=== PATIENT | female | born 1935 | race Caucasian/White ===

== ENCOUNTER 2016-06-09 16:59 | Inpatient (IN) ==
--- NOTE | 2016-06-09 17:32 | ED.PDOC ---
General Stated Complaint: 81 yo alert oriented humorous wf with history of left sided weakness post CVA slid out of bed into floor 4-5 hours finally up to living room. back to the bedroom legs gave out,red left hip. multiple bruises,coccyx red scabbed,knees red abraded "hurts all over" weak problems with falling. fell monday [employer] hit head denies loc[ End ]97.2 94 16 100 171/64 04/29 Time Seen by Physician: 17:32 Mode of Arrival: Ambulance Information Source: Patient Exam Limitations: No limitations Nursing and Triage Documentation Reviewed and Agree: No <JUAN JOSE GARCIA JR - Last Filed: 06/09/16 19:14> <VIRAJ VARGAS - Last Filed: 06/09/16 19:43> ED Provider: Dr. VIRAJ VARGAS (JUAN JOSE GARCIA JR) (VIRAJ VARGAS) Chief Complaint: Fall Primary Care Provider: DANGELO GONSALEZ (JUAN JOSE GARCIA JR) (VIRAJ VARGAS) Review of Systems - Review Of Systems Constitutional: Reports: Malaise, Weakness Eyes: Reports: No symptoms Ears, Nose, Mouth, Throat: Reports: No symptoms Respiratory: Reports: No symptoms Cardiac: Reports: No symptoms GI: Reports: No symptoms, Poor appetite : Reports: No symptoms Musculoskeletal: Reports: Other (left sided weakness) Skin: Reports: Bruising, Lesions Neurological: Reports: Weakness. Denies: Headache Endocrine: Reports: No symptoms Hematologic/Lymphatic: Reports: No symptoms All Other Systems: Other <JUAN JOSE GARCIA JR - Last Filed: 06/09/16 19:14> Past Medical History - Past Medical History Endocrine: Reports: DM 2, Hypothyroid Cardiovascular: Reports: None Respiratory: Reports: None Hematological: Reports: None Gastrointestinal: Reports: None Genitourinary: Reports: None Neuro/Psych: Reports: CVA Musculoskeletal: Reports: None Cancer: Reports: None Last Menstrual Period: n/a - Surgical History General Surgical History: Reports: Hysterectomy, Pacemaker, Orthopedic (left hip ), Other (thyroid) - Family History Family History: Reports: Unknown - Social History Smoking Status: Never smoker Hx Substance Use: No Alcohol Screening: None <JUAN JOSE GARCIA JR - Last Filed: 06/09/16 19:14> Physical Exam - Physical Exam Appearance: Ill-appearing Ill-appearing: Moderate Pain Distress: Moderate Neck: Supple Respiratory: Airway patent, Breath sounds clear Cardiovascular: RRR, Pulses normal, No rub GI/: Soft, Nontender Musculoskeletal: No calf tenderness, Limited ROM Skin: Warm, Dry, Normal color Neurological: Sensation intact, Motor intact, Reflexes intact, Cranial nerves intact, Alert, Oriented <JUAN JOSE GARCIA JR - Last Filed: 06/09/16 19:14> Interpretation - Radiology Interpretation Radiology Interpretation By: ED Physician Radiology Results: No acute changes Exam Interpreted: CXR - EKG Interpretation Time of EKG #1: 17:45 Rhythm: Other (paced at 82) <JUAN JOSE GARCIA JR - Last Filed: 06/09/16 19:14> Physician Notification - Case Discussed Endorsed To/Discussed With: DR IBARRA Time of Discussion: 19:15 <JUAN JOSE GARCIA JR - Last Filed: 06/09/16 19:14> - Case Discussed Physician Notified: dr gonsalez Time of Notification: 19:43 <VIRAJ VARGAS - Last Filed: 06/09/16 19:43> Critical Care Note - Critical Care Note Total Time (mins): 15 <JUAN JOSE GARCIA JR - Last Filed: 06/09/16 19:14> Course - Course Hematology/Chemistry: 06/09/16 18:20 <JUAN JOSE GARCIA JR - Last Filed: 06/09/16 19:14> - Course Hematology/Chemistry: 06/09/16 18:20 06/09/16 18:20 <VIRAJ VARGAS - Last Filed: 06/09/16 19:43> - Course Orders, Labs, Meds: Lab Review 06/09/16 06/09/16 06/09/16 17:44 17:54 18:20 WBC 8.86 RBC 4.40 Hgb 13.9 Hct 40.2 MCV 91.4 MCH 31.6 H MCHC 34.6 RDW Coeff of Hollie 14.6 Plt Count 152 Immature Gran % (Auto) 0.3 Neut % (Auto) 84.6 Lymph % (Auto) 7.8 L Mcdonough % (Auto) 7.0 Eos % (Auto) 0.1 Baso % (Auto) 0.2 Immature Gran # (Auto) 0.0 Neut # 7.5 H Lymph # 0.7 Mcdonough # 0.6 Eos # 0.0 Baso # 0.0 Sodium 140 Potassium 4.2 Chloride 98 Carbon Dioxide 25 Anion Gap 21.2 BUN 41 H Creatinine 1.56 H Estimated GFR (MDRD) 32.00 BUN/Creatinine Ratio 26.28 Glucose 159 H Lactic Acid 17.1 Calcium 9.1 Total Bilirubin 2.71 H AST 105 H ALT 77 Alkaline Phosphatase 91 Total Creatine Kinase 2868 CK-MB (CK-2) 52.5 H* CK-MB (CK-2) % 1.44903 Troponin I 0.0640 Total Protein 6.8 Albumin 3.9 Globulin 2.9 Albumin/Globulin Ratio 1.34 Urine Color Dark Urine Clarity Cloudy Urine pH 5.0 Ur Specific Richardson >=1.030 Urine Protein 2+ Urine Glucose (UA) Negative Urine Ketones Trace Urine Blood 3+ Urine Nitrite Negative Urine Bilirubin 2+ Urine Urobilinogen 0.2 Ur Leukocyte Esterase Negative Urine Microscopic RBC 10-20 Urine Microscopic WBC 2-5 Ur Squamous Epith Cells 5-10 Orders Category Date Time Status EKG-(ED ONLY) Stat CARDIO 06/09/16 17:33 Completed ED IV/MEDIPORT/POWERPORT .ONCE EMERGENCY 06/09/16 17:33 Active B-TYPE NATRIURETIC PEPTIDE Stat LAB 06/09/16 17:33 Ordered BLOOD CULTURE Stat LAB 06/09/16 18:06 Received CBC W/ AUTO DIFF Stat LAB 06/09/16 18:20 Completed COMPREHENSIVE METABOLIC PANEL Stat LAB 06/09/16 18:20 Completed CREATINE KINASE Stat LAB 06/09/16 18:20 Completed D-DIMER Stat LAB 06/09/16 18:20 Completed LACTIC ACID Stat LAB 06/09/16 17:54 Completed PROCALCITONIN Stat LAB 06/09/16 Ordered TROPONIN I Stat LAB 06/09/16 18:20 Completed UA [URINALYSIS C & S IF INDICATED] Stat LAB 06/09/16 17:44 Completed 0.9 % Sodium Chloride [Saline Flush] MEDS 06/09/16 17:33 Ordered 1 syr IVF PRN PRN Sodium Chloride 0.9% [Sodium Chloride] 1,000 ml MEDS 06/09/16 18:00 Discontinued IV BOLUS CHEST, 1V AP ONLY Stat RADS 06/09/16 17:[address] HEAD W/O CONTRAST Stat RADS 06/09/16 18:[address] PELVIS W/O CONTRAST Stat RADS 06/09/16 18:50 Completed Medications Generic Name Dose Route Start Last Admin Trade Name Freq PRN Reason Stop Dose Admin Sodium Chloride 1 syr 06/09/16 17:33 Saline Flush IVF PRN PRN To flush IV Discontinued Medications Generic Name Dose Route Start Last Admin Trade Name Freq PRN Reason Stop Dose Admin Sodium Chloride 1,000 mls @ 1,000 mls/hr 06/09/16 18:00 06/09/16 18:22 Sodium Chloride IV 06/09/16 18:59 200 mls/hr BOLUS STA Administration (FRED-ER,VIRAJ) Vital Signs: Temp Pulse Resp BP Pulse Ox 06/09/16 17:12 97.2 F L 94 H 16 171/64 H 100 (JUAN JOSE GARCIA JR) (FRED-PENNY,VIRAJ) Departure <JUAN JOSE GARCIA JR - Last Filed: 06/09/16 19:14> - Departure Time of Disposition: 19:43 Pt referred to PMD for follow-up: Yes Disposition Discussed With: Patient <VIRAJ VARGAS - Last Filed: 06/09/16 19:43> - Departure Disposition: ADMITTED INPATIENT Discharge Problem: Falls, Dehydration symptoms Condition: Fair Allergies/Adverse Reactions: Allergies codeine Adverse Reaction (Verified 06/09/16 17:19) insulin aspart Adverse Reaction (Verified 06/09/16 17:19) Home Medications: Ambulatory Orders Alprazolam [Xanax] 0.25 mg PO TID 12/02/13 Aspirin [Aspirin EC] 81 mg PO DAILYWM 12/02/13 Levothyroxine Sodium [Synthroid] 100 mcg PO AC 12/02/13 Simvastatin [Zocor] 40 mg PO WMHS 12/02/13 Tolterodine Tartrate [Detrol LA] 4 mg PO DAILY 12/02/13 Aspirin 81 mg PO DAILY 06/09/16 Cholecalciferol (Vitamin D3) [Vitamin D3] 2,000 unit PO DAILY 06/09/16 Dicyclomine HCl [Bentyl] 10 mg PO BID 06/09/16 Diphenoxylate HCl/Atropine [Lomotil 2.5-0.025 mg Tablet] 1 each PO DAILY PRN Losartan/Hydrochlorothiazide [Losartan-Hctz 100-12.5 mg Tab] 1 each PO DAILY Nitroglycerin [Nitrostat] 0.4 mg SL Q5MIN X 3 DOSES PRN 06/09/16
[2016-06-09 17:44] LABS: BILIRUBIN,URINE 2+ (NEGATIVE); KETONES,URINE Trace (NEGATIVE); LEUKOCYTE ESTERASE ,URINE Negative (NEGATIVE); NITRITE,URINE Negative (NEGATIVE); PROTEIN,URINE 2+ (NEGATIVE); URINE, BLOOD 3+ (NEGATIVE)
[2016-06-09 17:46] LABS: ADD URINE MICROSCOPIC YES
[2016-06-09] MEDS ORDERED: SODIUM CHLORIDE 1,000 ML IV STA (18:00)
[2016-06-09 18:30] LABS: BASOPHILS % (AUTO) 0.2 % (0.0-3.0); EOSINOPHILS % (AUTO) 0.1 % (0.0-7.0); HEMATOCRIT 40.2 % (37.0-47.0); HEMOGLOBIN 13.9 g/dl (12.0-16.0); IMMATURE GRANULOCYTE % (AUTO) 0.3 % (0.0-5.0); LYMPHOCYTES # (AUTO) 0.7 K/uL (0.60-3.4); LYMPHOCYTES % (AUTO) 7.8 (10.0-50.0); MEAN CORPUSCULAR HEMOGLOBIN 31.6 pg (27.0-31.0); MEAN CORPUSCULAR HGB CONC 34.6 (31.8-35.4); MEAN CORPUSCULAR VOLUME 91.4 fl (81.0-99.0); MONOCYTES # (AUTO) 0.6 K/uL (0.4-2.0); NEUTROPHILS # (AUTO) 7.5 K/ul (2.0-6.9); NEUTROPHILS % (AUTO) 84.6; PLATELET COUNT 152 10^3/uL (140-440); WHITE BLOOD COUNT 8.86 K/ul (4.6-10.2)
--- NOTE | 2016-06-09 19:06 | CT ---
EXAM: CT head without contrast 05/12/2016. Sagittal and coronal reformatted images obtained HISTORY: Fall. Trauma COMPARISON: None. FINDINGS: There is no evidence of intracranial hemorrhage. The midline is maintained. There is no hydrocephalus. Generalized atrophy. There is extensive low attenuation throughout the periventricu lar and subcortical white matter likely due to chronic microvascular ischemic changes. No cerebella r tonsillar ectopia. Evaluation of the calvarium shows no fracture. The mastoid air cells are norm ally pneumatized. IMPRESSION: No acute intracranial abnormality. Chronic findings as above.
[2016-06-09 19:20] LABS: ALBUMIN 3.9 g/dL (3.4-5.0); ALBUMIN/GLOBULIN RATIO 1.34; ANION GAP 21.2; BILIRUBIN,TOTAL 2.71 mg/dL (0.00-1.20); BUN/CREATININE RATIO 26.28; CALCIUM 9.1 mg/dL (8.2-10.2); CREATININE 1.56 mg/dL (0.60-1.30); POTASSIUM 4.2 mmol/L (3.5-5.10); TOTAL PROTEIN 6.8 g/dL (5.8-8.1); TROPONIN I 0.064 ng/ml (0.0000-0.4000)
--- NOTE | 2016-06-09 19:27 | CT ---
EXAM: CT of the pelvis without contrast. HISTORY: Fall. COMPARISON: CT of the pelvis dated 06/06/2014 TECHNIQUE: Contiguous axial images were obtained through the bony pelvis. Sagittal and coronal ref ormats were reviewed. FINDINGS: There are postoperative changes with 3 feet can the screws in the left hip and a femoral nail on the right. The hardware is intact. There is questionable lucency around the cannulated scr ews on the left. Findings suggest loosening. No acute fractures are identified. No other fractures are identified. There are no lytic or blastic lesions. Mild osteopenia seen. There are no sacral fractures identified on the study. There are degenerative changes of the lower lumbar spine. IMPRESSION: 1. No acute fractures are identified. 2. Postoperative changes in the hips bilaterally. There is some lucency around the cannulated scre ws on the left which may be due to loosening. 3. Mild osteopenia. 4. Degenerative changes. 5. Atherosclerotic disease.
[2016-06-09 19:32] LABS: CREATINE KINASE MB 52.5 ng/ml (0.0-3.6)
[2016-06-09] MEDS ORDERED: NITROSTAT SL PRN (19:46)
[2016-06-09] MEDS ORDERED: LOMOTIL PO PRN (19:46)
[2016-06-09 20:51] VITALS: BMI 21.4
[2016-06-09] MEDS ORDERED: ZOCOR PO SCH (21:00)
[2016-06-09] MEDS: SODIUM CHLORIDE 1,000 ML IV SCH (21:02)
[2016-06-09] MEDS ORDERED: ZOCOR ONE (21:11)
[2016-06-09] MEDS: XANAX PO SCH (21:13)
[2016-06-09] MEDS: BENTYL PO SCH (21:13)
--- NOTE | 2016-06-10 00:35 | DI ---
EXAM: AP single view of the chest. HISTORY: Chest pain. FINDINGS: The bones are unremarkable. There is a two lead pacemaker. The cardiac silhouette and pu lmonary vasculature are within normal limits. The costophrenic angles are clear. No infiltrate or c onsolidation. Impression: No acute cardiopulmonary disease.
[2016-06-10] MEDS: SODIUM CHLORIDE 1,000 ML IV SCH ×2 (05:19→15:22)
[2016-06-10] MEDS ORDERED: SYNTHROID ONE (05:25)
[2016-06-10 06:10] LABS: BASOPHILS % (AUTO) 0.4 % (0.0-3.0); EOSINOPHILS # (AUTO) 0.1 K/ul (0.0-0.7); EOSINOPHILS % (AUTO) 0.9 % (0.0-7.0); HEMATOCRIT 34.1 % (37.0-47.0); HEMOGLOBIN 11.6 g/dl (12.0-16.0); IMMATURE GRANULOCYTE % (AUTO) 0.3 % (0.0-5.0); LYMPHOCYTES # (AUTO) 1.1 K/uL (0.60-3.4); LYMPHOCYTES % (AUTO) 15.4 (10.0-50.0); MEAN CORPUSCULAR HEMOGLOBIN 31.1 pg (27.0-31.0); MEAN CORPUSCULAR VOLUME 91.4 fl (81.0-99.0); MONOCYTES # (AUTO) 0.5 K/uL (0.4-2.0); MONOCYTES % (AUTO) 6.6 (0-10); NEUTROPHILS # (AUTO) 5.3 K/ul (2.0-6.9); NEUTROPHILS % (AUTO) 76.4; PLATELET COUNT 153 10^3/uL (140-440); RED BLOOD COUNT 3.73 10^6/ul (4.20-5.40); WHITE BLOOD COUNT 6.93 K/ul (4.6-10.2)
[2016-06-10] MEDS ORDERED: SYNTHROID PO SCH ×2 (06:30→09:00)
[2016-06-10 06:45] LABS: ALBUMIN 3.2 g/dL (3.4-5.0); ALBUMIN/GLOBULIN RATIO 1.45; ANION GAP 14.2; BILIRUBIN,TOTAL 2.15 mg/dL (0.00-1.20); BUN/CREATININE RATIO 37.75; CALCIUM 8.2 mg/dL (8.2-10.2); CREATININE 0.98 mg/dL (0.60-1.30); POTASSIUM 3.2 mmol/L (3.5-5.10); TOTAL PROTEIN 5.4 g/dL (5.8-8.1)
[2016-06-10] MEDS ORDERED: ASPIRIN CHEWABLE PO SCH (08:00)
[2016-06-10] MEDS ORDERED: K-DUR PO STA (08:34)
[2016-06-10] MEDS ORDERED: NON-FORMULARY MEDICATION (Losartan/Hydrochlorothiazide [Losartan-Hctz 100-12.5 Mg Tab] 1 E PO SCH (09:00)
[2016-06-10] MEDS ORDERED: NON-FORMULARY MEDICATION (Tolterodine Tartrate 4 MG) PO SCH (09:00)
[2016-06-10] MEDS ORDERED: VITAMIN D PO SCH (09:00)
[2016-06-10] MEDS ORDERED: COZAAR PO SCH (09:00)
[2016-06-10] MEDS ORDERED: NON-FORMULARY MEDICATION (Cholecalciferol (Vitamin D3) [Vitamin D3] 2,000 UNIT) PO SCH (09:00)
[2016-06-10] MEDS ORDERED: HYDROCHLOROTHIAZIDE PO SCH (09:00)
[2016-06-10] MEDS ORDERED: DETROL LA PO SCH (09:00)
[2016-06-10] MEDS ORDERED: LOVENOX SUBCUT SCH (09:00)
[2016-06-10 09:31] LABS: CREATINE KINASE MB 17.6 ng/ml (0.0-3.6)
--- NOTE | 2016-06-10 09:31 | PN ---
DATE OF SERVICE: 06/09/16 - ADMISSION NOTE SUBJECTIVE: 81-year-old white female was brought to the emergency room because she has been falling frequently. The patient denies any chest pain. No PND, no orthopnea. The patient is weak. At times, the patient is not able to cook for herself and goes hungry according to her. REVIEW OF SYSTEMS: CONSTITUTIONAL: Weakness. No night sweats. No fever or chills. HEENT: Eyes: No visual changes. No eye pain. No eye discharge. ENT: No runny nose. No epistaxis. No sinus pain. No sore throat. No odynophagia. No congestion. RESPIRATORY: No cough, no congestion. No hemoptysis. CARDIOVASCULAR: No angina symptoms. No CHF symptoms. No atypical chest pain for CAD. No palpitations. No shortness of breath. GASTROINTESTINAL: No abdominal pain. No nausea or vomiting. No diarrhea or constipation. No hematemesis. No hematochezia. GENITOURINARY: No urgency. No frequency. No dysuria. No hematuria. No obstructive symptoms. No discharge. No pain. No significant abnormal bleeding. MUSCULOSKELETAL: No musculoskeletal pain; no joint swelling. NEUROLOGICAL: No headache. No neck pain. No syncope. No seizures. No dizziness. PSYCHIATRIC: Not anxious. No depression. No suicidal thoughts. No homicidal thoughts. SKIN: No rash. No lesions. No wounds. ENDOCRINE: No unexplained weight loss. No weight gain. HEMATOLOGIC/LYMPHATIC: No anemia. No purpura. No petechiae. No prolonged or excessive bleeding. No palpable lymph nodes. PHYSICAL EXAMINATION: VITAL SIGNS: HEENT: Head normocephalic, atraumatic. Eyes: Extraocular muscles are intact. Pupils are equal, round and reactive to light and accommodation. Ears: No lesions. Nose appeared normal. Throat: No exudate or erythema. Mucous membranes dry. NECK: Supple. No JVD, no carotid bruit. No lymphadenopathy or thyromegaly. LUNGS: Clear to auscultation. Percussion note normal. Chest symmetrical. HEART: S1, S2, no S3. No murmurs. No cyanosis or clubbing. No ascites. Pulses: Dorsalis pedis and posterior tibial pulses +1 to +2 both sides. ABDOMEN: Soft. Nontender. Bowel sounds active. No CVA tenderness. No mass felt. EXTREMITIES: No edema. Full range of motion of all extremities, equal. NEUROLOGIC: Left-sided weakness as before - no new neurological deficits. No headache, no double vision or headache. SKIN: Dry. Intact. Turgor - normal. LYMPHATIC: No palpable lymph nodes/no lymphedema. MUSCULOSKELETAL: Normal joints with no swelling. Muscle tone is normal. LABS: Elevated creatinine and BUN. Urine shows some trace blood. CK is approximately 2000 with borderline MB from muscle fraction. Because of the falls, the patient' s CK is up. Practically all the x-rays, CT scan are negative. ASSESSMENT: 1. Frequent falls 2. Dehydration 3. Renal azotemia 4. Status post CVA with left hemiparesis, old PLAN: 1. Admit the patient for IV fluids 2. Telemetry 3. Serial EKGs 4. Cardiac markers 5. Monitor neuro checks CONDITION: Stable TIME SPENT: More than 30 minutes. Plan and coordination of the patient's care discussed in the presence of nurse. JOSUE
[2016-06-10] MEDS: XANAX PO SCH (09:45)
[2016-06-10] MEDS: BENTYL PO SCH (09:46)
[2016-06-10 10:26] VITALS: TEMP 97.4
--- NOTE | 2016-06-10 10:35 | CT ---
EXAM: CT of the abdomen pelvis without contrast History: Elevated bilirubin, status post cholecystectomy. Comparison: CT abdomen pelvis 06/06/2014, pelvic CT 06/09/2016 Technique: Multiplanar CT images through the abdomen pelvis were obtained without the administratio n of IV contrast Findings: Subsegmental atelectasis again seen within the left lung base. There is a mildly displac ed fracture of the left greater trochanter. Hardware again seen within the bilateral proximal femurs . 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 Status post cholecystectomy. No obvious biliary ductal dilatation but evaluation is limited due to lack of contrast administration. Atherosclerotic vascular calcifications. Adrenal glands are unrem arkable. There is some atrophy of the pancreas but no peripancreatic inflammation. Adrenal glands a re unremarkable. Fluid is seen within the right: There is no specific evidence for bowel obstructi on. No renal stones and no hydronephrosis. Air is seen within the bladder and possibly within the b ladder wall. No perirectal inflammation. Impression: 1. Findings suspicious for emphysematous cystitis. 2. Status post cholecystectomy. No obvious biliary ductal dilatation. 3. Mildly displaced fracture of the left greater trochanter.
--- NOTE | 2016-06-10 11:55 | HP ---
DATE OF SERVICE: 06/09/16 - SEEN BY DR. DE JESUS FOR DR. LI CHIEF COMPLAINT/HISTORY OF PRESENT ILLNESS: This 81 year old WHITE/ F was hospitalized 06/09/16. The patient states she went to [facility] in Monday and fell. She came home and the next day or so became sore. She used bedside commode then went to living room and went to sleep. She then got up to go to the computer, sat down and started to get up from the bed and grabbed the commode and slid off the bed. She denies hitting her head or any loss of consciousness. She presented to the emergency room via ambulance. The patient's CPK and MB were elevated. The patient has a pacemaker placed the first of the year at [facility]. She was evaluated and admitted for further evaluation. REVIEW OF SYSTEMS: CONSTITUTIONAL: No fever, no chills. HEENT: Normal. ENDOCRINE: No weight gain; no weight loss. CVS: No chest pain. No PND, no orthopnea. No shortness of breath. RESPIRATORY: No cough, no congestion. No hemoptysis. GI: No nausea, no vomiting. No abdominal pain. No melena. : No hematuria. No polyuria. MUSCULOSKELETAL: No complaints of pain this morning. PSYCHIATRIC: Not anxious. No depression. No suicidal thoughts. No homicidal thoughts. SKIN: Intact, no open lesions. 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 No ilicit drug use. MEDICATIONS: (HOME) Alprazolam (Xanax) 0.25 mg p.o. t.i.d. Aspirin 81 mg p.o. daily with meal Levothyroxine (Synthroid) 100 mcg p.o. a.c. Simvastatin (Zocor) 40 mg p.o. with meal at h.s. Tolterodine (Detrol LA) 4 mg p.o. daily Nitroglycerin 0.4 mg SL q.5 min times three doses p.r.n. Aspirin 81 mg p.o. daily Losartan/HCTZ one each p.o. daily Dicyclomine (Bentyl) 10 mg p.o. b.i.d. Diphenoxylate/Atropine one each p.o. daily p.r.n. Cholecalciferol 2000 unit p.o. daily ALLERGIES: CODEINE, INSULIN ASPART PHYSICAL EXAMINATION: VITAL SIGNS: Temperature 97.3 F, Pulse 67, Respiratory Rate 17, BP 172/69, Pulse Ox 95% GENERAL: Sitting in chair in no distress. HEENT: Atraumatic, normocephalic. No scleral icterus. No pallor. NECK: Supple. No JVD, no bruit. No lymphadenopathy. No thyromegaly. HEART: S1, S2 normal. No murmur. No cyanosis or clubbing. No ascites. LUNGS: Decreased air entry. Clear to auscultation. No rales or rhonchi. ABDOMEN: Soft, nontender. Bowel sounds are active. No CVA tenderness. No rigidity or guarding. EXTREMITIES: No cyanosis, clubbing or pedal edema. MUSCULOSKELETAL: Normal joints, no swelling. NEUROLOGIC: The patient is awake, alert, oriented times three. SKIN: Intact; no open lesions. LYMPHATIC: No lymph nodes palpable. LAB REVIEW: 06/10/16 05:05: WBC 6.93, RBC 3.73 L, Hgb 11.6 L, Hct 34.1 L D, MCV 91.4, MCH 31.1 H, MCHC 34.0, RDW Coeff of Hollie 14.9 H, Plt Count 153, Immature Gran % (Auto ) 0.3, Neut % (Auto) 76.4, Lymph % (Auto) 15.4, Ida % (Auto) 6.6, Eos % (Auto) 0.9, Baso % (Auto) 0.4, Immature Gran # (Auto) 0.0, Neut # 5.3, Lymph # 1.1, Ida # 0.5, Eos # 0.1, Baso # 0.0, Sodium 139, Potassium 3.2 L, Chloride 103, Carbon Dioxide 25, Anion Gap 14.2, BUN 37 H, Creatinine 0.98 D, Estimated GFR ( MDRD) 55.00, BUN/Creatinine Ratio 37.75, Glucose 113, Calcium 8.2, Total Bilirubin 2.15 H, AST 75 H D, ALT 56, Alkaline Phosphatase 73, Total Protein 5.4 L, Albumin 3.2 L, Globulin 2.2, Albumin/Globulin Ratio 1.45 ASSESSMENT: 1. STATUS POST FALL 2. ELEVATED BILIRUBIN WITH ELEVATED LIVER ENZYMES MOSTLY FROM ELEVATED CPK BUT WILL RULE OUT INTRAABDOMINAL PATHOLOGY 3. EARLY RHABDOMYOLYSIS 4. DEHYDRATION 5. HYPOKALEMIA 6. ANEMIA 7. HYPERTENSION 8. DYSLIPIDEMIA 9. PERMANENT PACEMAKER PLAN: 1. Admit to regular floor 2. CBC, CMP today and daily 3. IV fluids 75 ml/daily 4. Stop Losartan/Hydrochlorothiazide 5. Start the patient on plain Losartan 100 mg 6. Daily I & O 7. Discontinue Zocor 8. CT abdomen and pelvis without contrast 9. TSH 10. PT/OT consult 11. Urine myoglobin 12. Potassium 40 mEq Plan and coordination of the patient's care discussed in the presence of Enroute Controller and nurse. CONDITION: Stable SCRIBED BY: ADA GARCES, Human Relations Professor scribed while in presence of service performed by Dr. De Jesus on 06/10/16 ([id number]) [facility]
[2016-06-10 13:58] VITALS: BP 142/74
[2016-06-10 14:17] LABS: CREATINE KINASE MB 12.1 ng/ml (0.0-3.6)
[2016-06-10] MEDS ORDERED: ZOCOR PO SCH (21:00)
[2016-06-11] MEDS ORDERED: SYNTHROID PO SCH ×2 (06:30)
--- NOTE | 2016-06-23 09:45 | DS ---
DATE OF SERVICE: 06/10/16 FINAL DIAGNOSIS: 1. Status post fall 2. Loosening of the hip nailing 3. Greater trochanter fracture 4. Acute renal failure with early rhabdomyolysis 5. Anemia 6. Elevated CK-MB 7. History of Coronary artery disease 8. Permanent pacemaker which was changed in March 2016 at [facility] 9. CVA, 2007 with the left hemiparesis residual 10.Hysterectomy 11.Osteoarthritis 12.DJD spine 13.Left hip pinning and nailing 14.Hypothyroidism 15.Depression 16.Anxiety DISCHARGE INSTRUCTIONS: Discharge patient to the [facility] under the care of the hospitalist for the greater trochanter fracture. Continue the current medications. MEDICATIONS AT DISCHARGE: Xanax Aspirin EC Synthroid Zocor Detrol Nitrostat Aspirin Losartan Bentyl Lomotil Vitamin D3 NEW PRESCRIPTIONS: N/A DIET INSTRUCTIONS: NPO ACTIVITY: Bed rest. SMOKING: Non-smoker DISEASE SPECIFIC EDUCATION: Transfer Greater Trochanter fracture HOSPITAL COURSE: Brenda Flores who is an 81 year old female who was admitted under the care of Dr. Miles yesterday for acute rhabdomyolysis, acute renal failure, dehydration and status post fall with left hip pain. CT of the abdomen and pelvis does show that patient's previously done nailing was loosening and there was a cannulate formation. CT pelvis was done today which again showed the greater trochanter fracture and the same loosening of the pins in the left hip. Her BUN and creatinine got improved from 41 to 37 and creatinine 1.56 and 0.98. Total creatinine kinase went down to 1,107 from 2868. The patient was more awake and alert but review of her left hip problems the patient is transferred to the [facility] under the care of hospitalist. TIME SPENT: More than 45 minutes today. JOSUE
== END 2016-06-10 14:25 | disposition short-term general hospital (02) | DRG 536 ==
LOC: ED 16:59 → MEDSURG B 19:51
PROVIDERS: ADMIT Internal Medicine; ATTEND Internal Medicine
DX: S72.112A Displaced fracture of greater trochanter of left femur, initial encounter for closed fracture (principal); T84.031A Mechanical loosening of internal left hip prosthetic joint, initial encounter; M62.82 Rhabdomyolysis; N17.9 Acute kidney failure, unspecified; I69.954 Hemiplegia and hemiparesis following unspecified cerebrovascular disease affecting left non-dominant side; E86.0 Dehydration; R79.89 Other specified abnormal findings of blood chemistry; E11.9 Type 2 diabetes mellitus without complications; D64.9 Anemia, unspecified; M62.81 Muscle weakness (generalized); I25.10 Atherosclerotic heart disease of native coronary artery without angina pectoris; M19.90 Unspecified osteoarthritis, unspecified site; M47.9 Spondylosis, unspecified; E03.9 Hypothyroidism, unspecified; F41.8 Other specified anxiety disorders; T14.8 Other injury of unspecified body region; W06.XXXA Fall from bed, initial encounter; Z91.81 History of falling; Y92.003 Bedroom of unspecified non-institutional (private) residence as the place of occurrence of the external cause; Z79.899 Other long term (current) drug therapy; Z95.0 Presence of cardiac pacemaker
CPT/HCPCS: 36415; 80053; 81001; 82550; 82553; 83605; 83880; 84145; 84443; 84484; 85025; 85379; 87040; 93005; 93010; 96360; 96361; 99284

== ENCOUNTER 2017-10-09 08:12 | Outpatient (CLI) ==
--- NOTE | 2017-10-09 09:02 | US ---
EXAM: Ultrasound abdomen limited right upper quadrant HISTORY: Abnormal liver enzymes COMPARISON: None TECHNIQUE: Limited ultrasound abdomen right upper quadrant was performed FINDINGS: Visualized portion pancreas appears normal. Portions of the pancreas obscured secondary t o bowel gas shadowing. Liver normal in size and echogenicity. Main portal vein patent with directio n of flow. Patient status post cholecystectomy. No biliary duct dilation with common bile pressure 0.4 cm. Right kidney measures 8.9 cm in length without hydronephrosis. IMPRESSION: 1. Status post cholecystectomy. No biliary duct dilation. 2. Normal sonographic appearance of the liver.
== END 2017-10-09 08:13 | disposition home or self-care (01) ==
LOC: RAD 08:12
PROVIDERS: ATTEND Internal Medicine
DX: R74.8 Abnormal levels of other serum enzymes (principal)

== ENCOUNTER 2018-03-23 14:21 | Inpatient (IN) | payer OTHER ==
--- NOTE | 2018-03-23 15:20 | CT ---
EXAM: CT Head HISTORY: Injury COMPARISON: 06/09/2016 TECHNIQUE: CT head performed without contrast FINDINGS: There is no mass effect, midline shift, or intracranial hemmorhage. Tena white differenti ation is preserved. There is no extra-axial collection. The ventricles, sulci, and basal cisterns a re patent and symmetric. There is chronic ischemic disease of the white matter and cerebral volume l oss. There is no depressed calvarial fracture. The mastoid air cells are clear. The visualized para nasal sinuses are clear. There are intracranial atherosclerotic calcifications. Left frontal scalp h ematoma. IMPRESSION: 1. No acute intracranial abnormality. 2. Left frontal scalp hematoma. 3. Chronic ischemic disease of the white matter and cerebral volume loss.
--- NOTE | 2018-03-23 15:21 | CT ---
EXAM: CT cervical spine. HISTORY: Neck injury, pain. TECHNIQUE: CT cervical spine without contrast. Detailed axial sections. Coronal and sagittal re-fo rmations. COMPARISON: None FINDINGS: Bones appear demineralized. There is no fracture or loss of vertebral body height. No spondylolisth esis. Facet joints are covered. Lateral masses of C1 and C2 are normally aligned and the odontoid process is intact. Diffuse degenerative disc and facet disease with multilevel mild central canal st enosis. Probable degenerative neural foraminal narrowing at C5/C6 on the right. No paraspinal hemat trevon. Incidental note of atherosclerotic disease. IMPRESSION: 1. No fracture or subluxation.
--- NOTE | 2018-03-23 15:25 | ED.PDOC ---
General ED Provider: Dr. NORA LIN Chief Complaint: Fall Stated Complaint: head injury Time Seen by Physician: 14:30 (see photos) Mode of Arrival: Ambulance Information Source: Patient, EMT Exam Limitations: No limitations Primary Care Provider: DANGELO LI Nursing and Triage Documentation Reviewed and Agree: Yes Does patient meet sepsis criteria?: No System Inflammatory Response Syndrome: Not Applicable Sepsis Protocol: For patient's 13 years and over: Temp is 96.8 and below OR 101 and greater Pulse >90 BPM Resp >20/minute Acutely Altered Mental Status Are patient's symptoms suggestive of a new infection, such as: -Pneumonia -Skin, Soft Tissue -Endocarditis -UTI -Bone, Joint Infection -Implantable Device -Acute Abdominal Infection -Wound Infection -Meningitis -Blood Stream Catheter Infection -Unknown Trauma/Injury Complaint Exam - Trauma Complaint/Exam Location of Pain or Injury: Reports: Head, Neck, Other (arm skin tear ) Onset/Duration: today Symptoms Are: Still present Initial Severity: Mild Current Severity: Mild Character: Reports: Aching Aggravating: Reports: None Alleviating: Reports: Rest Associated Signs and Symptoms: Reports: Bruising (forhead). Denies: LOC, Confusion, Memory loss, Lethargy, Vomiting, Bleeding, Swelling, Extremity disuse , Painful respiration, Hoarseness, Dysphagia, Hemoptysis, Significant blood loss Nexus Low Risk Criteria: No post-midline CS tender, No evidence of intoxicat., No Altered LOC, No focal neuro deficit, No distracting injuries Glascow Coma Scale (see protocol): 15 Review of Systems - Review Of Systems Constitutional: Reports: No symptoms Eyes: Reports: No symptoms Ears, Nose, Mouth, Throat: Reports: No symptoms Respiratory: Reports: No symptoms Cardiac: Reports: No symptoms GI: Reports: No symptoms : Reports: No symptoms Musculoskeletal: Reports: No symptoms Skin: Reports: Bruising (head ), Other (abrasion arms see photos) Neurological: Reports: No symptoms Endocrine: Reports: No symptoms Hematologic/Lymphatic: Reports: No symptoms All Other Systems: Reviewed and Negative Past Medical History - Past Medical History Previously Healthy: Yes Endocrine: Reports: DM 2, Hypothyroid Cardiovascular: Reports: None Respiratory: Reports: None Hematological: Reports: None Gastrointestinal: Reports: None Genitourinary: Reports: None Neuro/Psych: Reports: CVA Musculoskeletal: Reports: None Cancer: Reports: None Last Menstrual Period: NA - Surgical History General Surgical History: Reports: Hysterectomy, Pacemaker, Orthopedic (left hip ), Other (thyroid) - Family History Family History: Reports: Unknown - Social History Smoking Status: Never smoker Hx Substance Use: No Alcohol Screening: None Physical Exam - Physical Exam Appearance: Well-appearing, No pain distress, Well-nourished Eyes: CHANTAL, EOMI, Conjunctiva clear ENT: Ears normal, Nose normal, Oropharynx normal Respiratory: Airway patent, Breath sounds clear, Breath sounds equal, Respirations nonlabored Cardiovascular: RRR, Pulses normal, No rub, No murmur GI/: Soft, Nontender, No masses, Bowel sounds normal, No Organomegaly Musculoskeletal: Normal strength, ROM intact, No edema, No calf tenderness Skin: Warm, Dry (abrasion left arm, brusing forhead ) Neurological: Sensation intact, Motor intact, Reflexes intact, Cranial nerves intact, Alert, Oriented Psychiatric: Affect appropriate, Mood appropriate Interpretation - Radiology Interpretation Radiology Interpretation By: Radiologist Radiology Results: No acute changes Procedures - Laceration/Wound Repair No standard instances Wound Description: Linear Wound Length (cm): 1cm Wound Width: 2mm Wound Depth: 2mm Wound Explored: Clean Wound Prep: Saline, Hibiclens Wound Repaired With: Steri-strips Critical Care Note - Critical Care Note Total Time (mins): 0 Course - Course Orders, Labs, Meds: Lab Review 03/23/18 14:51 Urine Color Yellow Urine Clarity Slightly Urine pH 7.0 Ur Specific [place] 1.015 Urine Protein Negative Urine Glucose (UA) Negative Urine Ketones Trace Urine Blood Trace-intact Urine Nitrite Negative Urine Bilirubin Negative Urine Urobilinogen 0.2 Ur Leukocyte Esterase 3+ Urine Microscopic WBC 20-30 Ur Squamous Epith Cells 2-5 Urine Bacteria 2+ Orders Category Date Time Status URINALYSIS C & S IF INDICATED Stat LAB 03/23/18 14:51 Completed URINE CULTURE Stat LAB 03/23/18 14:[address] CERVICAL SPINE W/O CONTRAST Stat RADS 03/23/18 14:[address] HEAD W/O CONTRAST Stat RADS 03/23/18 14:38 Completed Vital Signs: Temp Pulse Resp BP Pulse Ox 03/23/18 14:24 97.6 F 72 16 214/110 H 100 Departure - Departure Time of Disposition: 15:25 Disposition: HOME SELF-CARE Discharge Problem: Skin tear Head injury Qualifiers: Encounter type: initial encounter Qualified Code(s): S09.90XA - Unspecified injury of head, initial encounter Instructions: Head Injury (ED), Skin Tear (ED) Condition: Good Pt referred to PMD for follow-up: Yes IPMP verified?: No Allergies/Adverse Reactions: Allergies codeine Adverse Reaction (Verified 03/23/18 14:23) insulin aspart Adverse Reaction (Verified 03/23/18 14:23) Home Medications: Ambulatory Orders Alprazolam [Xanax] 0.25 mg PO TID PRN 12/02/13 Aspirin [Aspirin EC] 81 mg PO DAILYWM 12/02/13 Tolterodine Tartrate [Detrol LA] 4 mg PO DAILY 12/02/13 Dicyclomine HCl [Bentyl] 10 mg PO BID 06/09/16 Losartan/Hydrochlorothiazide [Losartan-Hctz 100-12.5 mg Tab] 1 each PO DAILY Nitroglycerin [Nitrostat] 0.4 mg SL Q5MIN X 3 DOSES PRN 06/09/16 Diphenoxylate HCl/Atropine [Diphenoxylate-Atrop 2.5-0.025] 1 each PO DAILY PRN 03/23/18 Ferrous Sulfate 324 mg PO BID 03/23/18 Levothyroxine Sodium 50 mcg PO DAILY 03/23/18 Metformin HCl 500 mg PO DAILY 03/23/18 Polyethylene Glycol 3350 [Miralax] 17 gm PO DAILY 03/23/18 Sitagliptin Phosphate [Januvia] 50 mg PO DAILY 03/23/18
[2018-03-23] MEDS ORDERED: ROCEPHIN IM STA (15:36)
[2018-03-23] MEDS ORDERED: LIDOCAINE HCL 1% SDV IM STA (15:36)
[2018-03-23] MEDS ORDERED: ZESTRIL PO STA (16:06)
[2018-03-23] MEDS ORDERED: ZESTRIL ONE (16:26)
[2018-03-23] MEDS ORDERED: NORVASC PO STA (17:15)
[2018-03-23] MEDS ORDERED: XANAX PO PRN (17:17)
[2018-03-23] MEDS ORDERED: NITROSTAT SL PRN (17:17)
[2018-03-23] MEDS ORDERED: LOMOTIL PO PRN (17:17)
[2018-03-23] MEDS ORDERED: HUMULIN R SUBCUT STA (17:19)
[2018-03-23 20:04] VITALS: BMI 19.8
[2018-03-23] MEDS: BENTYL PO SCH (21:49)
[2018-03-23] MEDS: FERROUS SULFATE PO SCH (21:50)
[2018-03-23] MEDS: SODIUM CHLORIDE 1,000 ML IV SCH (21:51)
[2018-03-24] MEDS: MIRALAX PO SCH (08:30)
[2018-03-24] MEDS: FERROUS SULFATE PO SCH ×2 (08:32→20:09)
[2018-03-24] MEDS: DETROL LA PO SCH (08:32)
[2018-03-24] MEDS: HYDROCHLOROTHIAZIDE PO SCH (08:32)
[2018-03-24] MEDS: SYNTHROID PO SCH (08:32)
[2018-03-24] MEDS: BENTYL PO SCH ×2 (08:32→20:09)
[2018-03-24] MEDS: ASPIRIN EC PO SCH (08:32)
[2018-03-24] MEDS: COZAAR PO SCH (08:33)
[2018-03-24] MEDS ORDERED: NON-FORMULARY MEDICATION (Losartan/Hydrochlorothiazide [Losartan-Hctz 100-12.5 Mg Tab] 1 E PO SCH (09:00)
[2018-03-24] MEDS ORDERED: NON-FORMULARY MEDICATION (Tolterodine Tartrate 4 MG) PO SCH (09:00)
[2018-03-24] MEDS: SODIUM CHLORIDE 1,000 ML IV SCH (17:18)
[2018-03-24] MEDS: NORVASC PO SCH (20:09)
[2018-03-25] MEDS: SYNTHROID PO SCH (05:49)
[2018-03-25] MEDS: SODIUM CHLORIDE 1,000 ML IV SCH ×2 (08:56→22:47)
[2018-03-25] MEDS: ASPIRIN EC PO SCH (08:57)
[2018-03-25] MEDS: COZAAR PO SCH (08:57)
[2018-03-25] MEDS: HYDROCHLOROTHIAZIDE PO SCH (08:57)
[2018-03-25] MEDS: MIRALAX PO SCH (08:57)
[2018-03-25] MEDS: DETROL LA PO SCH (08:57)
[2018-03-25] MEDS: FERROUS SULFATE PO SCH ×2 (08:57→21:03)
[2018-03-25] MEDS: K-DUR PO SCH (09:53)
[2018-03-25] MEDS: BENTYL PO SCH ×2 (09:53→21:04)
[2018-03-25] MEDS: ROCEPHIN 1 GM in SODIUM CHLORIDE 50 ML IV SCH (09:55)
--- NOTE | 2018-03-25 10:38 | CT ---
EXAM: CT brain with contrast HISTORY: Left-sided weakness and recent fall TECHNIQUE: CT of the brain with intravenous contrast FINDINGS: Detection of hemorrhage is inhibited in the presence of intravascular contrast. There is no acute hemorrhage midline shift or mass effect. No hydrocephalus or abnormal extra-axial fluid col lection. Generalized involutional atrophy, moderate. Chronic microvascular changes of the white mat ter tracts, severe. No acute large vessel territorial infarct is seen. There is no abnormal enhance ment or abnormal draining veins. The bony cranium appears normal. The visualized paranasal sinuses are clear. Left frontal scalp hematoma shows significant interval decrease compared with 03/23/2018. IMPRESSION: 1. Postcontrast CT of the head shows no acute intracranial abnormality. 2. Generalized involutional atrophy and chronic microvascular changes of the white matter tracts.
[2018-03-25] MEDS ORDERED: TYLENOL PO STA (17:10)
[2018-03-25] MEDS: NORVASC PO SCH (21:04)
[2018-03-26] MEDS: SYNTHROID PO SCH (05:52)
[2018-03-26] MEDS ORDERED: K-DUR PO STA (08:17)
[2018-03-26] MEDS: MIRALAX PO SCH (09:10)
[2018-03-26] MEDS: DETROL LA PO SCH (09:10)
[2018-03-26] MEDS: ASPIRIN EC PO SCH (09:10)
[2018-03-26] MEDS: BENTYL PO SCH ×2 (09:11→20:33)
[2018-03-26] MEDS: K-DUR PO SCH (09:11)
[2018-03-26] MEDS: FERROUS SULFATE PO SCH ×2 (09:12→20:33)
[2018-03-26] MEDS: COZAAR PO SCH (09:12)
[2018-03-26] MEDS: HYDROCHLOROTHIAZIDE PO SCH (09:12)
[2018-03-26] MEDS: ROCEPHIN 1 GM in SODIUM CHLORIDE 50 ML IV SCH (09:13)
--- NOTE | 2018-03-26 09:37 | PCM.PROG ---
Attending Provider: ATTENDING PROVIDER: Dr. DANGELO LI This patient is seen with Katerin Irving, Nurse Practitioner. DATE OF SERVICE: 03/26/18 SUBJECTIVE: This 83 year old WHITE/ F was hospitalized 03/23/18. The patient is lying in bed. The patient's blood pressure has been elevated. She has confusion morning and nighttime. Two doses of Rocephin given. No fever. REVIEW OF SYSTEMS: CONSTITUTIONAL: Weakness. No night sweats. No fatigue, malaise, lethargy. No fever or chills. HEENT: Eyes: No visual changes. No eye pain. No eye discharge. ENT: No runny nose. No epistaxis. No sinus pain. No odynophagia. No congestion. RESPIRATORY: No cough, no congestion. No hemoptysis. No shortness of breath. CARDIOVASCULAR: No angina symptoms. No CHF symptoms. No atypical chest pain for CAD. No palpitations. No orthopnea.. GASTROINTESTINAL: No abdominal pain. No nausea or vomiting. No diarrhea or constipation. No hematemesis. No hematochezia. GENITOURINARY: No urgency. No frequency. No dysuria. No hematuria. No obstructive symptoms. No discharge. No pain. No significant abnormal bleeding. MUSCULOSKELETAL: No musculoskeletal pain; no joint swelling. NEUROLOGICAL: Confusion. No headache. No neck pain. No syncope. No seizures. No dizziness. PSYCHIATRIC: Not anxious. No depression. No suicidal thoughts. No homicidal thoughts. SKIN: Bruising to left forehead, left side of face. No rash. No lesions. No wounds. ENDOCRINE: No unexplained weight loss. No weight gain. HEMATOLOGIC/LYMPHATIC: No anemia. No purpura. No petechiae. No prolonged or excessive bleeding. No palpable lymph nodes. PHYSICAL EXAMINATION: GENERAL: The patient is awake, alert, oriented to person lying in bed in no distress. VITAL SIGNS: Temperature 98.6 F, Pulse 62, Respiratory Rate 14, BP 151/73, Pulse Ox 98% HEENT: Head normocephalic. Eyes: Extraocular muscles are intact. Pupils are equal, round and reactive to light and accommodation. Ears: No lesions. Nose appeared normal. Throat: No exudate or erythema. NECK: Supple. No JVD, no carotid bruit. No lymphadenopathy or thyromegaly. LUNGS: Diminished breath sounds. Clear to auscultation. Percussion note normal. Chest symmetrical. HEART: Positive for pacemaker. S1, S2, no S3. No murmurs. No cyanosis or clubbing. No ascites. Pulses: Dorsalis pedis and posterior tibial pulses +1 to +2 both sides. ABDOMEN: Soft. Non-tender. Bowel sounds active. No CVA tenderness. No mass felt. EXTREMITIES: No edema. Full range of motion of all extremities, equal. NEUROLOGIC: No focal deficit. Cranial nerves II through XII are grossly intact. No headache, no double vision or headache. SKIN: Warm, dry. Intact. Bruising to left arm and left side of face, knot on left forehead. LYMPHATIC: No palpable lymph nodes/no lymphedema. MUSCULOSKELETAL: Normal joints with no swelling. Muscle tone is normal. LAB REVIEW: 03/25/18 05:53 03/25/18 05:53 ASSESSMENT: 1. Status post fall with injury to left arm and left hip. 2. UTI. 3. Positive for Klebsiella. 4. Hypertension. PLAN: 1. X-ray hip and pelvis 2. PT/OT 3. Left shoulder/elbow/wrist x-ray. 4. Norvasc 10 mg h.s. 5. D/C IV fluids. 6. Potassium 40 mEq one time dose. Plan and coordination of the patient's care discussed in the presence of [employer] and nurse. CONDITION: Stable SCRIBED BY: Marichuy SALDIVAR scribed while in presence of service performed by Dr. Li/Katerin Irving APRN on 03/26/18 ([id number])
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
--- NOTE | 2018-03-26 15:51 | RS.OTINEVL ---
Subjective - Patient information Date of Evaluation: 03/26/18 Date of Arrival on Unit: 03/23/18 Admitted From:: Home Usual Living Arrangement: Alone Living Arrangement Comments: Pt was living alone in her apartment at home. Pt had a fall and had a head injury. Pt used a rollator walker at home and completed her ADLS herself. Pt had a stroke years ago and was able to manage herself. Medical History: Hypertension Medical History Comments:: Head Injury, falls, UTI, Hx of CVA, frontal scalp hematoma. Subjective Information/ Patient Comments:: "I guess I am ok." - Level of function Prior to this admission, the patient could do the following:: Independent ADL's , Independent Ambulation Abilities prior to this admission: Pt was living at home with a rollator walker and was independent with her self care. Current Level of Function: Independent Current Equipment Used at Home: walker Interventions - Objective Patient Orientation: Person, Place Current Interventions: IV's, Oxygen, Telemetry Interventions - ROM Right Upper Extremity AROM: Slight limitation Left Upper Extremity AROM: Moderate limitation - Strength Right Upper Extremity Strength: Mild Weakness Left Upper Extremity Strength: Rigid - Sensation Right Upper Extremity Sensation: Intact/Normal Left Upper Extremity Sensation: Intact/Normal Balance - Sitting Balance Static Sitting Balance: Fair Dynamic Sitting Balance: Fair - Standing Balance Static Standing Balance: Fair Dynamic Standing Balance: Fair ADL Skills - Self Feeding Self Feeding: Supervision - Grooming Grooming: Supervision - Bathing Bathing UE: Min Assist, 2 person assist Bathing LE: Max Assist, 2 person assist - Dressing Dressing UE: Max Assist Dressing LE: Max Assist, 2 person assist - Toilet Management Toileting Management: Max Assist Functional Mobility - Bed Mobility Rolling R/L: Min Assist Scooting: Min Assist Supine to Sit: Mod Assist Sit to Supine: Mod Assist - Transfers Sit to Stand: Max Assist, 2 person assist Stand to Sit: Max Assist, 2 person assist Stand Pivot Transfers: Max Assist - Ambulation Weight Bearing Status: FWB Assistive Device Used: Rolling Walker Assistance needed with Ambulation: Max Assist, 2 person assist Comments:: Pt drags her LLE behind her as she attempts to ambulate. DARLING INDEX SCORE: . Additional Treatment Performed - Time with patient Length of Evaluation: 30 Total treatment time: 33 Activities Do you enjoy playing games?: Yes Would you be interested in leaving your room for activities?: Yes Would you enjoy group activities?: Yes Patient Interests:: Watching Television Patient Education Patient Education: Education of diagnosis, Body/Joint mechanics, Home Exercise Program, Education of Plan of Care Teaching Recipient: Patient Teaching Methods: Discussion, Demonstration Assessment Problem List:: Decreased level of function, Requires training/education, Decreased safety/Risk of falls, Weakness Rehab Potential: Fair Further Therapy Indicated?: Yes Evaluation Complexity: HISTORY: Medium, EXAM OF BODY SYSTEMS: Medium, CLINICAL DECISION MAKING: Medium Short Term Goals - Goals GOAL 1: Pt to complete sit to stand pivots from bed to chair Moderate Assist. Goal to be met by: 03/30/18 GOAL 2: Pt to increase dynamic standing balance to Fair-. Goal to be met by: 03/30/18 GOAL 3: Pt to increase independence of UB dressing to Minimal assistance. Goal to be met by: 03/30/18 [facility] Goals GOAL 1: Pt to increase transfers for self care to be Supervision. Goal to be met by: 04/06/18 GOAL 2: Pt to increase dynamic standing balance to Fair+. Goal to be met by: 04/06/18 GOAL 3: Pt to increase activity tolerance to 15 minutes to increase safety of ADLS. Goal to be met by: 04/06/18 Plan Plan of Care: Therapeutic EX, Neuromuscular Re-Educ, Therapeutic Activity, Self- Care/Home Management Frequency of Treatment: 1-2 X day, as tolerated Duration of Treatment: 2 Weeks Anticipated Discharge Destination: [facility] Treatment Diagnosis (ICD 10 Codes): M62.81 muscle weakness. Left side weakness Has the Physician been added for Co-signature?: Yes
[2018-03-26] MEDS: NORVASC PO SCH (20:34)
[2018-03-27] MEDS: SYNTHROID PO SCH (06:14)
--- NOTE | 2018-03-27 09:02 | PCM.PROG ---
Attending Provider: ATTENDING PROVIDER: Dr. DANGELO LI DATE OF SERVICE: 03/27/18 SUBJECTIVE: This 83 year old WHITE/ F was hospitalized 03/23/18 with a head injury , left temporal area hematoma. She also had bruising of left shoulder and left hip. CT scan and all x-rays show no fracture, no subdural hematoma. The patient had hypertensive urgency more or less controlled. She is alert and is focusing her eyes. She is alert, is able to answer with some dysphasia. REVIEW OF SYSTEMS: CONSTITUTIONAL: No night sweats. No fatigue, malaise, lethargy. No fever or chills. HEENT: Eyes: No visual changes. No eye pain. No eye discharge. ENT: No runny nose. No epistaxis. No sinus pain. No odynophagia. No congestion. RESPIRATORY: No cough, no congestion. No hemoptysis. No shortness of breath. CARDIOVASCULAR: No angina symptoms. No CHF symptoms. No atypical chest pain for CAD. No palpitations. No orthopnea.. GASTROINTESTINAL: No abdominal pain. No nausea or vomiting. No diarrhea or constipation. No hematemesis. No hematochezia. GENITOURINARY: No urgency. No frequency. No dysuria. No hematuria. No obstructive symptoms. No discharge. No pain. No significant abnormal bleeding. MUSCULOSKELETAL: Left hemiparesis. NEUROLOGICAL: Awake, alert, oriented to person. No headache. No neck pain. No syncope. No seizures. No dizziness. PSYCHIATRIC: Not anxious. No depression. No suicidal thoughts. No homicidal thoughts. SKIN: Bruising to left shoulder and left hip. No rash. No lesions. No wounds. ENDOCRINE: No unexplained weight loss. No weight gain. HEMATOLOGIC/LYMPHATIC: No anemia. No purpura. No petechiae. No prolonged or excessive bleeding. No palpable lymph nodes. PHYSICAL EXAMINATION GENERAL: The patient is awake, alert and oriented to person, lying in bed in no distress. VITAL SIGNS: Temperature 98.2 F, Pulse 60, Respiratory Rate 16, BP 134/66, Pulse Ox 93% HEENT: Head normocephalic. Left scalp hematoma, resolving. Eyes: Extraocular muscles are intact. Pupils are equal, round and reactive to light and accommodation. Ears: No lesions. Nose appeared normal. Throat: No exudate or erythema. NECK: Supple. No JVD, no carotid bruit. No lymphadenopathy or thyromegaly. LUNGS: Clear to auscultation. Percussion note normal. Chest symmetrical. HEART: S1, S2, no S3. No murmurs. No cyanosis or clubbing. No ascites. Pulses: Dorsalis pedis and posterior tibial pulses +1 to +2 both sides. ABDOMEN: Soft. Non-tender. Bowel sounds active. No CVA tenderness. No mass felt. EXTREMITIES: No edema. Full range of motion of all extremities, equal. NEUROLOGIC: No focal deficit. Cranial nerves II through XII are grossly intact. No headache, no double vision or headache. SKIN: Warm and dry. Intact. Turgor-normal. LYMPHATIC: No palpable lymph nodes/no lymphedema. MUSCULOSKELETAL: Normal joints with no swelling. Muscle tone is normal. LAB REVIEW: 03/27/18 04:20 03/27/18 04:20 03/27/18 04:20: Sodium 134.9, Potassium 4.19, Chloride 97.5 L, Carbon Dioxide 32.7 H, Anion Gap 8.89, BUN 8.6, Creatinine 0.79, Estimated GFR (MDRD) 70.00, BUN/Creatinine Ratio 10.88, Glucose 119.2 H, Calcium 9.07, Total Bilirubin 0.97 , AST 25.7, ALT 16.1, Alkaline Phosphatase 116.9, Total Protein 6.68, Albumin 3.74, Globulin 2.94, Albumin/Globulin Ratio 1.27 03/27/18 04:20: WBC 4.15 L, RBC 4.49, Hgb 14.1, Hct 42.2, MCV 94.0, MCH 31.4 H, MCHC 33.4, RDW Coeff of Hollie 13.9, Plt Count 216, Immature Gran % (Auto) 0.0, Neut % (Auto) 51.6, Lymph % (Auto) 32.8, [place] % (Auto) 9.6, Eos % (Auto) 5.3, Baso % (Auto) 0.7, Immature Gran # (Auto) 0.0, Neut # (Auto) 2.1, Lymph # (Auto ) 1.4, [place] # (Auto) 0.4, Eos # (Auto) 0.2, Baso # (Auto) 0.0 ASSESSMENT: 1. Left scalp, congregational area with hematoma resolving. 2. Left-sided bruising shoulder and hip with no fractures. The patient seems to have frequent falls. Fall risk discussed. The patient needs to be in a skilled nursing. 3. The rest of the patient's medical conditions are controlled. PLAN: Discussed with the daughter and she talked about rehabilitation. We are waiting for PT evaluation and will evaluate for swing. Plan and coordination of the patient's care discussed in the presence of [employer] and nurse. CONDITION: Stable SCRIBED BY: ADA GARCES Obstetrical Nurse scribed while in presence of service performed by Dr. DANGELO LI on 03/27/18 ([id number])
[2018-03-27] MEDS: BENTYL PO SCH ×2 (09:47→20:31)
[2018-03-27] MEDS: HYDROCHLOROTHIAZIDE PO SCH (09:47)
[2018-03-27] MEDS: DETROL LA PO SCH (09:47)
[2018-03-27] MEDS: FERROUS SULFATE PO SCH ×2 (09:48→20:30)
[2018-03-27] MEDS: COZAAR PO SCH (09:48)
[2018-03-27] MEDS: ASPIRIN EC PO SCH (09:48)
[2018-03-27] MEDS: K-DUR PO SCH (09:48)
[2018-03-27] MEDS: MIRALAX PO SCH (09:49)
[2018-03-27] MEDS: ROCEPHIN 1 GM in SODIUM CHLORIDE 50 ML IV SCH (09:49)
--- NOTE | 2018-03-27 11:05 | RS.BEDDYS ---
Subjective Number of treatment sessions: 1 Date of Evaluation: 03/27/18 Treatment Diagnosis: UTI, fall Prior Level of Function.....Patient was independent with: Self Care Current Level of Function: This 83 year old female was admitted due to a multiple falls, HTN, and UTI. She lived in her home reported independence with ADLS. The patient has a hx of CVA with left side affected. She did not report any hx of swallowing difficulty. Pt has a recent change to speech intelligibility and swallowing reported from the nursing staff and caregivers, putting pt at risk for aspiration. Current Diet: regular diet with thin liquids. Current Subjective/complaints:: Pt reported she noted a change with herself. She would not provide details upon verbal questioning by the TRUCK CATERER. The pt also stated she felt "people think i'm dumb." The TRUCK CATERER noted the pt with moderate difficulty with speech intelligibility and the TRUCK CATERER required her to repeat herself frequently to understand her speech utterances. Nursing and Rehab staff requested the TRUCK CATERER consult with the pt due to suspected swallowing difficulty. Patient's Goals: To return home. TRUCK CATERER to place pt on safest and least restrictive diet. General Information - General Ability to Follow Directions: Good Oral Expression Ability: Moderate Impairment (Speech intelligibility affects communciation of message.) Oral-Facial Assessment - Face Facial Symmetry: Asymmetrical - Dental/Labial Lip Protrusion: Droops Left Lip Retraction: Droops Left Puff Cheeks: Reduced Strength - Lingual Protrusion: Reduced ROM Retraction: Reduced ROM Tip Lateralization: Reduced ROM Repeated Tip Lateralization: Reduced ROM Tip Elevation: Reduced ROM Repeated Tip Elevation: Reduced ROM Food Presentation - Solids Food Presented: Regular (pt fed self.) Behaviors/Comments: Pt masticated for 2 minutes without any swallow attempt or lingual movement to back of oral cavity. TRUCK CATERER removed texture with finger sweep. Pt at risk for aspiration with regular diet texture. Food Presented: Mechanical Soft (Finger food, self fed.) Behaviors/Comments: Pt was instructed by the TRUCK CATERER to place texture on right side. Verbal instructions with lingual sweep was also educated and trained with pt durign the trials. No overt s/s of aspiration noted. pt had mild oral stasis , and mild pocketing to left side. - Liquids Liquid Presented: Thin (open cup by patient.) Behaviors/Comments: two trials with immediate cough and emesis of thin liquids. Pt at risk for aspiration with thin liquids. Liquid Presented: Nenana (Open cup) Behaviors/Comments: Pt had no overt s/s of aspiration with nectar thick liquids over multiple trials. - Recommendations: Dysphagia Evaluation Dietary Recommendations: Dysphagia Mechanical Soft, Nenana- thick liquids Comments:: Pt to have mechanical soft diet texture and nectar thick liquids to reduce risk for aspiration. Pt has difficulty with lingual coordination and will require assistance for lingual strength and coordination techniques to improve swallow function. Dysphagia Swallow Precautions/Strategies: Sitting Upright (90 deg), Liquids from Cup, Small Bites and Sips, Alternate Liquids/Solids Comments:: Pt to present bites to right side, use lingual sweep or finger sweep with left sulcus to clear residue or stasis. Follow safe swallow precautions and aspiration precautions. Medications crushed in applesauce. - Summary Dysphagia Evaluation Summary: Pt presents with mild-moderate oropharyngeal dysphagia. Deficits are noted with lingual control, oral sensation, and laryngeal elevation. Pt has a risk for aspriation. TRUCK CATERER recommends mechanical soft with nectar thick liquids. Further Therapy Indicated?: Yes Comments: Lingual exercises and safe swallow education recommended. Rehab Potential: Good Functional Reporting G Codes: Swallowing Current CK goal CK Severity Impairment Rationale: Mechanical soft and nectar thick liquids. Short Term Goals Problem: Lingual coordination Goal #1: Complete 10 reps of lingual exercises over 5 trials. Goal to be met by: 03/30/18 Problem: Aspiration Goal #2: Consume thin liquids via TRUCK CATERER without overt s/s of asp. Goal to be met by: 03/30/18 Crystal Lapper Goals Problem: Diet Goal #1: Consume regular diet texture w/o overt s/s of asp. Goal to be met by: 03/30/18 Problem: Liquids Goal #2: Consume thin liquids w/o overt s/s of asp. Goal to be met by: 03/30/18 Plan Duration of Treatment: 1 Week Anticipated Discharge Destination: Possible SNF, may go home, undecided at this time. Comments: TRUCK CATERER wants pt to have continued ST for lingual coordination, safe swallowing and general speech intelligibility. - Treatment Code (1) Oropharyngeal dysphagia Code(s): R13.12 - DYSPHAGIA, OROPHARYNGEAL PHASE
--- NOTE | 2018-03-27 13:19 | RS.PTINEVL ---
Subjective - Patient information Date of Evaluation: 03/27/18 Date of Arrival on Unit: 03/23/18 Admitted From:: Home Diagnosis: head injury s/p fall, hypertensive emergency Usual Living Arrangement: Alone Living Arrangement Comments: pt lived alone in apt. Had meals on wheels 1x a day. Home Environment: Apartment Medical History: Hypertension, CVA/TIA Surgical History: Hysterectomy Surgical History Comments:: L hip sx, pacemaker Medications: see chart Subjective Information/ Patient Comments:: pt states she was living alone prior to admission and was taking care of herself. She states she only "partially" remembers falling. - Level of function Prior to this admission, the patient could do the following:: Independent ADL's , Independent Ambulation Current Level of Function: Independent Current Equipment Used at Home: rolling walker. Interventions - Objective Patient Orientation: Person, Place Current Interventions: Telemetry Observation: pt with bruising noted to L side of her face. Dressing intact L upper arm Range of Motion - ROM Right Upper Extremity AROM: WFL's Left Upper Extremity AROM: Moderate limitation (pt with limited L elbow ext) Right Lower Extremity AROM: WFL's Left Lower Extremity AROM: Slight limitation (pt with limited L ankle DF as well as knee flex due to ext tone.) Muscle Strength - Muscle Strength Right Upper Extremity Strength: Mild Weakness (grossly 4/5) Left Upper Extremity Strength: Severe Weakness Right Lower Extremity Strength: Mild Weakness (hip flex 3/5, knee flex/ext 3/5, ankle df/PF 3+/5) Left Lower Extremity Strength: Severe Weakness (hip flex 3-/5, knee flex 2+/5, ext 3/5, ankle DF/PF 2/5) Sensation - Sensation Right Upper Extremity Sensation: Intact/Normal Left Upper Extremity Sensation: Intact/Normal Right Lower Extremity Sensation: Intact/Normal Left Lower Extremity Sensation: Intact/Normal Palpation Palpation Findings: Tenderness, None/Normal Comments:: L UE Balance - Sitting Balance and Reactions Static Sitting Balance: Poor Dynamic Sitting Balance: Poor Sitting Equilibrium Reactions: Absent Left, Absent Right Sitting Protective Reactions: Absent Left, Absent Right - Standing Balance and Reactions Static Standing Balance: Zero Dynamic Standing Balance: Zero Standing Equilibrium Reactions: Absent Left, Absent Right Standing Protective Reactions: Absent Left, Absent Right - Comments Balance Assessment Comments: pt able to sit at side of bed unsupported approx 20 secs with no challenges to balance. pt unable to stand without max assist of 2. Functional Mobility - Bed Mobility Rolling R/L: Max Assist, 1 person assist Scooting: Max Assist, 2 person assist Supine to Sit: Max Assist, 2 person assist - Transfers Sit to Stand: Max Assist, 2 person assist Stand Pivot Transfers: Max Assist, 2 person assist Comments:: pt stand pivot to chair with max of 2. pt unable to advance LLE. - Safety Awareness Safety Awareness: Poor DARLING INDEX SCORE: n/a Ambulation - Ambulation Ambulation Comments: pt unable to amb at this time. Unable to advance LLE. Treatment time - Time with patient Length of Evaluation: 26 Total treatment time: 29 Patient Education - Education Patient Education: Activity Modification, Education of Plan of Care Teaching Recipient: Patient Teaching Methods: Discussion Comments: discussion regarding POC Assessment - Assessment Problem List:: Decreased level of function, Requires training/education, Decreased safety/Risk of falls, Weakness, Cognitive status limits abilities Rehab Potential: Fair Further Therapy Indicated?: Yes Candidate for Swing Bed for Therapy Services?: Feel pt would not be a candidate for swing bed for therapy. Feel pt may be more appropriate for LTC rehab Evaluation Complexity: HISTORY: Medium (head injury, fall, CVA, HTN, ), EXAM OF BODY SYSTEMS: Medium (balance, bed mobility, transfers, strength,posture), CLINICAL PRESENTATION: Medium, CLINICAL DECISION MAKING: Medium Short Term Goals GOAL #1: pt demonstrate rolling with mod x 1 Goal to be met by: 03/30/18 GOAL #2: pt transfer sup to/from sit mod x 2 Goal to be met by: 03/30/18 GOAL #3: pt transfer bed to/from chair with mod x 2 with improved weight bearing LLE Goal to be met by: 03/30/18 GOAL #4: pt able to sit at side of bed unsupported x 45 secs without challenges Goal to be met by: 03/30/18 Shelter Goals GOAL #1: pt demonstrate rolling with min x1 with bed rails Goal to be met by: 04/02/18 GOAL #2: Transfer sup to/from sit mod x 1, sit to/from stand mod x 1 Goal to be met by: 04/02/18 GOAL #3: Transfer bed to/from chair with mod x 1 Goal to be met by: 04/02/18 Plan Plan of Care: Therapeutic EX, Therapeutic Activity Other:: gait training Frequency of Treatment: 1-2 X day, as tolerated Duration of Treatment: 1 Week Anticipated Discharge Destination: [facility] Treatment Diagnosis (ICD 10 Codes): M62.81 weakness. R 26.81 balance impaired. hx of falls Has the Physician been added for Co-signature?: Yes
[2018-03-27] MEDS: NORVASC PO SCH (20:30)
[2018-03-27] MEDS ORDERED: TYLENOL PO PRN (21:02)
[2018-03-28 04:57] VITALS: BP 125/75; TEMP 97.8
[2018-03-28] MEDS: SYNTHROID PO SCH (05:51)
[2018-03-28] MEDS: HYDROCHLOROTHIAZIDE PO SCH (09:12)
[2018-03-28] MEDS: FERROUS SULFATE PO SCH (09:12)
[2018-03-28] MEDS: DETROL LA PO SCH (09:12)
[2018-03-28] MEDS: COZAAR PO SCH (09:12)
[2018-03-28] MEDS: ASPIRIN EC PO SCH (09:12)
[2018-03-28] MEDS: K-DUR PO SCH (09:12)
[2018-03-28] MEDS: MIRALAX PO SCH (09:12)
[2018-03-28] MEDS: ROCEPHIN 1 GM in SODIUM CHLORIDE 50 ML IV SCH (09:13)
[2018-03-28] MEDS: BENTYL PO SCH (09:13)
--- NOTE | 2018-03-28 09:17 | PCM.PROG ---
Attending Provider: ATTENDING PROVIDER: Dr. DANGELO LI This patient is seen with Katerin Irving, Nurse Practitioner. DATE OF SERVICE: 03/28/18 SUBJECTIVE: This 83 year old WHITE/ F was hospitalized 03/23/18. The patient is lying in bed resting comfortably. PT/OT evaluation showed need for long term care due to severe weakness requiring assistance for all ADLs. The patient is bed confined at this point. He does not qualify for swing bed here. He is eating better on mechanical soft diet. The daughter has arranged for her to be placed in [place] in [place]. Blood pressure is better controlled. X-ray showed no fracture. REVIEW OF SYSTEMS: CONSTITUTIONAL: Generalized weakness. No night sweats. No malaise, lethargy. No fever or chills. HEENT: Eyes: No visual changes. No eye pain. No eye discharge. ENT: No runny nose. No epistaxis. No sinus pain. No odynophagia. No congestion. RESPIRATORY: No cough, no congestion. No hemoptysis. No shortness of breath. CARDIOVASCULAR: No angina symptoms. No CHF symptoms. No atypical chest pain for CAD. No palpitations. No orthopnea.. GASTROINTESTINAL: No abdominal pain. No nausea or vomiting. No diarrhea or constipation. No hematemesis. No hematochezia. GENITOURINARY: No urgency. No frequency. No dysuria. No hematuria. No obstructive symptoms. No discharge. No pain. No significant abnormal bleeding. MUSCULOSKELETAL: No musculoskeletal pain; no joint swelling. NEUROLOGICAL: Awake with bouts of confusion. No headache. No neck pain. No syncope. No seizures. No dizziness. PSYCHIATRIC: Not anxious. No depression. No suicidal thoughts. No homicidal thoughts. SKIN: No rash. No lesions. No wounds. Positive for bruising left side of face, forehead and left hip. ENDOCRINE: No unexplained weight loss. No weight gain. HEMATOLOGIC/LYMPHATIC: No anemia. No purpura. No petechiae. No prolonged or excessive bleeding. No palpable lymph nodes. PHYSICAL EXAMINATION: GENERAL: The patient is awake, alert, confused lying in bed in no distress. VITAL SIGNS: Temperature 97.8 F, Pulse 60, Respiratory Rate 16, BP 125/75, Pulse Ox 100% HEENT: Head normocephalic, atraumatic. Eyes: Extraocular muscles are intact. Pupils are equal, round and reactive to light and accommodation. Ears: No lesions. Nose appeared normal. Throat: No exudate or erythema. NECK: Supple. No JVD, no carotid bruit. No lymphadenopathy or thyromegaly. LUNGS: Diminished breath sounds. Clear to auscultation. Percussion note normal. Chest symmetrical. HEART: S1, S2, no S3. No murmurs. No cyanosis or clubbing. No ascites. Pulses: Dorsalis pedis and posterior tibial pulses +1 to +2 both sides. ABDOMEN: Soft. Non-tender. Bowel sounds active. No CVA tenderness. No mass felt. EXTREMITIES: No edema. Full range of motion of all extremities, equal. NEUROLOGIC: No focal deficit. Cranial nerves II through XII are grossly intact. No headache, no double vision or headache. SKIN: Warm and dry. Bruising to left side of face, forehead and left hip. LYMPHATIC: No palpable lymph nodes/no lymphedema. MUSCULOSKELETAL: Normal joints with no swelling. Muscle tone is normal. LAB REVIEW: 03/28/18 04:40 03/28/18 04:40 03/28/18 04:40: Sodium 131.9 L, Potassium 3.88, Chloride 95.7 L, Carbon Dioxide 31.1 H, Anion Gap 8.98, BUN 12.3, Creatinine 0.98, Estimated GFR (MDRD) 54.00, BUN/Creatinine Ratio 12.55, Glucose 116.2 H, Calcium 8.85, Total Bilirubin 0.96 , AST 23.1, ALT 15.0, Alkaline Phosphatase 106.8, Total Protein 6.75, Albumin 3.69, Globulin 3.06, Albumin/Globulin Ratio 1.20 03/28/18 04:40: WBC 4.78, RBC 4.46, Hgb 13.9, Hct 42.1, MCV 94.4, MCH 31.2 H, MCHC 33.0, RDW Coeff of Hollie 13.9, Plt Count 222, Immature Gran % (Auto) 0.4, Neut % (Auto) 49.2, Lymph % (Auto) 35.8, [place] % (Auto) 9.4, Eos % (Auto) 4.6, Baso % (Auto) 0.6, Immature Gran # (Auto) 0.0, Neut # (Auto) 2.4, Lymph # (Auto ) 1.7, [place] # (Auto) 0.5, Eos # (Auto) 0.2, Baso # (Auto) 0.0 ASSESSMENT: 1. Head injury status post fall. 2. Hypertensive urgency now controlled. 3. UTI, positive Klebsiella. PLAN: 1. Repeat CBC and CMP in one week. 2. The patient is to followup in our office as there will be a physician following her at [place]. 3. Will discharge to [place]. 4. Omnicef 300 mg b.i.d. times 7 days 5. Norvasc 10 mg daily at night. 6. Clonidine 0.1 mg b.i.d. p.r.n blood pressure greater than 150. 7. Continue Metformin and Januvia. 8. K-Dur 10 mEq daily. Plan and coordination of the patient's care discussed in the presence of Staff Physical Therapist and nurse. CONDITION: Stable SCRIBED BY: ADA GARCES [employer] Project Manager scribed while in presence of service performed by Dr. Li/Katerin Irving APRN on 03/28/18 ([id number])
--- NOTE | 2018-03-28 09:55 | CM.DICTOOL ---
ADMISSION: 03/23/18 17:30 DISCHARGE: 03/28/18 FINAL DIAGNOSIS HEAD INJURY S/P FALL - ACUTE HYPERTENSIVE URGENCY - CONTROLLED UTI - KLEBS PNEUMONIAE - RESOLVING OROPHARYNGEAL DYSPHAGIA - ACUTE HISTORY OF: S/P CATARACT 2009 CVA 2006 S/P PACE MAKER INSERTION 2005 S/P LEFT HIP REPLACEMENT - DATE UNKNOWN HYPOTHYROIDISM S/P THYROIDECTOMY - DATE UNKNOWN ANXIETY DEPRESSION LAST VITALS Temp Pulse Resp BP Pulse Ox 97.8 F 60 16 125/75 100 03/28/18 04:54 03/28/18 04:54 03/28/18 04:54 03/28/18 04:54 03/28/18 04:54 TAKE THESE MEDICATIONS AT HOME Acetaminophen (Tylenol) 650 mg PO Q6H PRN PRN Reason: Mild Pain Last Admin: 03/27/18 21:38 Dose: 650 mg Alprazolam (Xanax) 0.25 mg PO TID PRN PRN Reason: Anxiety Last Admin: 03/27/18 21:38 Dose: 0.25 mg Amlodipine Besylate (Norvasc) 10 mg PO BEDTIME [facility] Last Admin: 03/27/18 20:30 Dose: 10 mg Aspirin (Aspirin Ec) 81 mg PO DAILYWM [facility] Last Admin: 03/28/18 09:12 Dose: 81 mg Dicyclomine HCl (Bentyl) 10 mg PO BID [facility] Last Admin: 03/28/18 09:13 Dose: 10 mg Diphenoxylate HCl/Atropine (Lomotil) 1 tab PO DAILY PRN PRN Reason: Diarrhea Ferrous Sulfate (Ferrous Sulfate) 324 mg PO BID [facility] Last Admin: 03/28/18 09:12 Dose: 324 mg Hydrochlorothiazide (Hydrochlorothiazide) 12.5 mg PO DAILY [facility] Last Admin: 03/28/18 09:12 Dose: 12.5 mg Levothyroxine Sodium (Synthroid) 50 mcg PO QDAC [facility] Last Admin: 03/28/18 05:51 Dose: 50 mcg Losartan Potassium (Cozaar) 100 mg PO DAILY [facility] Last Admin: 03/28/18 09:12 Dose: 100 mg Nitroglycerin (Nitrostat) 0.4 mg SL Q5MIN X 3 DOSES PRN PRN Reason: Angina Polyethylene Glycol (Miralax) 17 gm PO DAILY [facility] Last Admin: 03/28/18 09:12 Dose: 17 gm Potassium Chloride (K-Dur) 10 meq PO DAILYWM [facility] Last Admin: 03/28/18 09:12 Dose: 20 meq Tolterodine Tartrate (Detrol La) 4 mg PO DAILY [facility] Last Admin: 03/28/18 09:12 Dose: 4 mg METFORMIN 500 MG PO DAILY JANUVIA 50 MG PO DAILY ALLERGIES codeine Adverse Reaction (Verified 03/23/18 14:23) insulin aspart Adverse Reaction (Verified 03/23/18 14:23) Discontinued Medications Acetaminophen (Tylenol) 650 mg PO ONCE STA Stop: 03/25/18 17:11 Last Admin: 03/25/18 17:19 Dose: 650 mg Amlodipine Besylate (Norvasc) 5 mg PO ONCE STA Stop: 03/23/18 17:16 Last Admin: 03/23/18 17:47 Dose: Not Given Ceftriaxone Sodium (Rocephin) 1 gm IM ONCE STA Stop: 03/23/18 15:37 Last Admin: 03/23/18 15:58 Dose: 1 gm Sodium Chloride (Sodium Chloride) 1,000 mls @ 75 mls/hr IV .[id number] [facility] Last Admin: 03/25/18 22:47 Dose: 75 mls/hr Insulin Human Regular (Humulin R) 0 unit SUBCUT ONCE STA; Protocol Stop: 03/23/18 17:20 Last Admin: 03/23/18 22:34 Dose: Not Given Lidocaine HCl (Lidocaine Hcl 1% Sdv) 2.1 ml IM ONCE STA Stop: 03/23/18 15:37 Last Admin: 03/23/18 15:59 Dose: 2.1 ml Lisinopril (Zestril) 20 mg PO ONCE STA Stop: 03/23/18 16:07 Last Admin: 03/23/18 16:24 Dose: 20 mg Non-Formulary Medication (Losartan/Hydrochlorothiazide [Losartan-Hctz 100-12.5 Mg Tab]) 1 each PO DAILY [facility] Potassium Chloride (K-Dur) 40 meq PO ONCE STA Stop: 03/26/18 08:18 Last Admin: 03/26/18 09:11 Dose: 40 meq NEW PRESCRIPTIONS: NEW MEDICATIONS: 1. OMNICEF 300MG TAKE 1 TABLET 2 TIMES A DAY FOR 7 DAYS. 2. NORVASC 10MG TAKE 1 TABLET AT BEDTIME 3. CLONIDINE 0.1MG TAKE 1 TABLET 2 TIMES A DAY NEEDED FOR SYSTOLIC BLOOD PRESSURE GREATER THAN 150 4. K-DUR 10MEQ TAKE 1 CAPSULE DAILY SMOKING: N/A DISEASE SPECIFIC EDUCATION: HYPERTENSION SAFETY MEDICATIONS DIET REHAB SERVICES LAB REVIEW: 03/28/18 04:40 03/28/18 04:40 03/28/18 04:40: Sodium 131.9 L, Potassium 3.88, Chloride 95.7 L, Carbon Dioxide 31.1 H, Anion Gap 8.98, BUN 12.3, Creatinine 0.98, Estimated GFR (MDRD) 54.00, BUN/Creatinine Ratio 12.55, Glucose 116.2 H, Calcium 8.85, Total Bilirubin 0.96 , AST 23.1, ALT 15.0, Alkaline Phosphatase 106.8, Total Protein 6.75, Albumin 3.69, Globulin 3.06, Albumin/Globulin Ratio 1.20 03/28/18 04:40: WBC 4.78, RBC 4.46, Hgb 13.9, Hct 42.1, MCV 94.4, MCH 31.2 H, MCHC 33.0, RDW Coeff of Hollie 13.9, Plt Count 222, Immature Gran % (Auto) 0.4, Neut % (Auto) 49.2, Lymph % (Auto) 35.8, Person % (Auto) 9.4, Eos % (Auto) 4.6, Baso % (Auto) 0.6, Immature Gran # (Auto) 0.0, Neut # (Auto) 2.4, Lymph # (Auto ) 1.7, Person # (Auto) 0.5, Eos # (Auto) 0.2, Baso # (Auto) 0.0 PLAN: DISCHARGE TO [facility] TODAY. 03/28/18 CONTINUE HOME MEDICATIONS PER NURSING SHEETS. NEW MEDICATIONS: 1. OMNICEF 300MG TAKE 1 TABLET 2 TIMES A DAY FOR 7 DAYS. 2. NORVASC 10MG TAKE 1 TABLET AT BEDTIME 3. CLONIDINE 0.1MG TAKE 1 TABLET 2 TIMES A DAY NEEDED FOR SYSTOLIC BLOOD PRESSURE GREATER THAN 150 4. K-DUR 10MEQ TAKE 1 CAPSULE DAILY DIET: MECHANICAL SOFT WITH NECTAR THICKENED FLUIDS. SPEECH THERAPY CONSULT. ACTIVITY: PT/OT TO EVALUATE AND TREAT. CBC AND CMP IN 1 WEEK VITALS SIGNS EVERY SHIFT X 3 DAYS THEN MONTHLY BLOOD PRESSURE BID FOLLOW FACILITY MD AND RETURN TO DR. LI'S OFFICE ABLE AND NEEDED PATIENT IS A FULL CODE ASLEEP. AWAKENS EASILY. ALERT AND ORIENTED X 4. CONTINUES TO UNDERSTAND WHAT IS SPOKEN TO HER WITH SOME DIFFICULTY WITH VERBAL RESPONSE. Jadon MISHRA APRN INTO SEE PATIENT. DISCUSSED PLAN OF CARE INCLUDING DISCHARGE TO [place], MEDICATIONS , FOLLOW LONGTERM MD. PATIENT VERBALIZES UNDERSTANDING AND AGREEMENT. APPETITE IS FAIR. VITAL SIGNS ARE STABLE. BLOOD PRESSURE IMPROVED. HAS BEEN AFEBRILE. POX 100% ON ROOM AIR. HEART TONES ARE REGULAR WITH TELEMETRY REVEALING AV PACED. NO C/O PAIN OR DISCOMFORT. LUNGS ARE CLEAR. NO COUGH NOTED. SOME DYSPNEA WITH ACTIVITY. ABDOMEN IS SOFT, NON-TENDER WITH BOWEL SOUNDS POSITIVE IN ALL 4 QUADS. IS INCONTINENT OF BLADDER. HAD BM THIS AM. PEDAL PULSES ARE POSITIVE WITHOUT EDEMA. HAS BRUISING NOTED TO LEFT SIDE OF FACE, NECK , SHOULDER, ELBOW AND ARM. HAS SKIN TEAR TO LEFT UPPER ARM WITH DRESSING DRY AND INTACT. SEVERE WEAKNESS NOTED TO LEFT UPPER AND LEFT LOWER EXTREMITY. HAS SALINE LOCK IN RIGHT FOREARM SITE IS CLEAR. SKIN IS WARM DRY AND INTACT. DR. DANGELO LI MD Jadon MISHRA APRN
--- NOTE | 2018-03-28 10:59 | HP ---
DATE OF SERVICE: 03/23/18 REASON FOR HOSPITALIZATION/HISTORY OF PRESENT ILLNESS: 83 year old white female who lives at home alone. She had fallen and received a head injury, fallen on her left side and had a knot on her left side of her forehead and was brought in by the ambulance. She has a history of CVA with left hemiparesis. PAST MEDICAL HISTORY: Diabetes Mellitus type 2 Hypothyroidism History of CVA with left sided weakness History of falls Anxiety Urinary urgency Irritable bowel syndrome Hypertension Coronary artery disease Anemia Hypothyroidism History of constipation PAST SURGICAL HISTORY: Hysterectomy Pacemaker Left hip repair Thyroid surgery REVIEW OF SYSTEMS: CONSTITUTIONAL: No night sweats. No fatigue, malaise, lethargy. No fever or chills. HEENT: Eyes: No visual changes. No eye pain. No eye discharge. ENT: No runny nose. No epistaxis. No sinus pain. No sore throat. No odynophagia. No ear pain. No congestion. RESPIRATORY: No cough, no congestion. No hemoptysis. No shortness of breath. CARDIOVASCULAR: No angina symptoms. No CHF symptoms. No atypical chest pain for CAD. No palpitations. No PND. No orthopnea. GASTROINTESTINAL: No abdominal pain. No nausea or vomiting. No diarrhea or constipation. No hematemesis. No hematochezia. GENITOURINARY: No urgency. No frequency. No dysuria. No hematuria. No obstructive symptoms. No discharge. No pain. No significant abnormal bleeding. MUSCULOSKELETAL: No musculoskeletal pain. No joint swelling. No arthritis. Weakness. NEUROLOGICAL: No headache. No neck pain. No syncope. No seizures. No dizziness. PSYCHIATRIC: Not anxious. No depression. No suicidal thoughts. No homicidal thoughts. SKIN: No rash. No lesions. No wounds. Bruising to the left side of her body including left forehead down to jaw, left shoulder, left arm and left hip with superficial abrasions. ENDOCRINE: No unexplained weight loss. No weight gain. HEMATOLOGIC/LYMPHATIC: No anemia. No purpura. No petechiae. No prolonged or excessive bleeding. No palpable lymph nodes. PERSONAL/FAMILY/SOCIAL HISTORY: The patient is a nonsmoker, . Lives alone. No alcohol or illicit drug use. MEDICATIONS: Xanax 0.25mg PO three times a day PRN Aspirin 81mg PO daily Detrol LA 4mg PO dialy Nitrostat 0.4mg sublingual Q 5 minutes x 3 doses PRN Losartan/ Hydrochlorothiazide 100-12.5mg PO daily Bentyl 10mg PO twice a day Levothyroxine 50mcg PO daily Diphenoxylate -Atrop 2.5-0.025 PO daily PRN Miralax 17gram Po daily Ferrous Sulfate 324mg PO twice a day Metformin 500mg Po daily Januvia 50mg PO daily ALLERGIES: Codeine Insulin aspart PHYSICAL EXAMINATION: GENERAL: The patient is alert and oriented to person and place. VITAL SIGNS: Temperature 97.6, heart rate 72, respiratory rate 16, blood pressure 214/110, pulse ox 100%. HEENT: Head normocephalic, atraumatic. Eyes: Extraocular muscles are intact. Pupils are equal, round and reactive to light and accommodation. Ears: No lesions. Nose appeared normal. Throat: No exudate or erythema. NECK: Supple. No JVD, no carotid bruit. No lymphadenopathy or thyromegaly. LUNGS: Diminished breath sounds bilaterally. Clear to auscultation. Percussion note normal. Chest symmetrical. HEART: S1, S2, no S3. No murmurs. No cyanosis or clubbing. No ascites. Pulses: Dorsalis pedis and posterior tibial pulses +1 to +2 bilaterally. ABDOMEN: Soft. Nontender. Bowel sounds active. No CVA tenderness. No mass felt. EXTREMITIES: No edema. Full range of motion of all extremities, equal. Left sided hemiparesis which is chronic from old CVA. NEUROLOGIC: No focal deficit. Cranial nerves II through XII are grossly intact. No headache, no double vision or headache. SKIN: Not dry. Intact. Turgor - normal. 1 inch hematoma to the left side of the forehead which is raised. Generalized bruising from forehead to left cheek, entire left arm and on left hip. LYMPHATIC: No palpable lymph nodes/no lymphedema. MUSCULOSKELETAL: Normal joints with no swelling. Muscle tone is normal. LABS: U/A shows 2+ bacteria, 3+ leukocytes, pH 7.0, trace blood, trace ketones, Negative nitrates. CT of the C spine showed no acute process. CT of the head showed no acute process, superficial hematoma. ASSESSMENT: 1. Close cut injury with hematoma 2. Urinary tract infection 3. Hypertensive urgency 4. History of coronary artery disease 5. Pacemaker PLAN: 1. Will admit 2. Routine telemetry orders 3. Neuro checks Q 4 hours 4. CBC and CMP daily 5. Sliding scale for insulin 6. Start on Rocephin 1 gram IV daily 7. IV fluids normal saline at 75cc an hour 8. Continue all home medications 9. Vasotec 1.25 IV now one time dose 10.Send urine for culture 11.Regular diet 12.Will do x-ray of left arm, left hip and pelvis due to fall and bruising. Will follow closely. TIME SPENT: More than 70 minutes. DEVANTED
--- NOTE | 2018-03-28 11:27 | PN ---
DATE OF SERVICE: 03/24/18 SUBJECTIVE: 83 year old white female hospitalized with head injury, also had hypertensive urgency and UTI. The patient had fallen at home has hematoma on the left side of the scalp and upper part of the face. The patient has recent history of stroke with left hemiparesis. She is alert but confused. Pupils are equal and reactive to light, normally. CT scan of the head done yesterday was negative for any subdural hematoma. The patient also had hypertensive urgency. The blood pressure has been brought under control, 138/78. The patient is living in some kind of facility in [place]. Her speech is slurried as usual. REVIEW OF SYSTEMS: CONSTITUTIONAL: No night sweats. No fatigue, malaise, lethargy. No fever or chills. HEENT: Eyes: No visual changes. No eye pain. No eye discharge. ENT: No runny nose. No epistaxis. No sinus pain. No sore throat. No odynophagia. No congestion. RESPIRATORY: No cough, no congestion. No hemoptysis. No shortness of breath. CARDIOVASCULAR: No angina symptoms. No CHF symptoms. No atypical chest pain for CAD. No palpitations. No orthopnea. GASTROINTESTINAL: No abdominal pain. No nausea or vomiting. No diarrhea or constipation. No hematemesis. No hematochezia. GENITOURINARY: No urgency. No frequency. No dysuria. No hematuria. No obstructive symptoms. No discharge. No pain. No significant abnormal bleeding. MUSCULOSKELETAL: No musculoskeletal pain; no joint swelling. NEUROLOGICAL: No headache. No neck pain. No syncope. No seizures. No dizziness. PSYCHIATRIC: Not anxious. No depression. No suicidal thoughts. No homicidal thoughts. SKIN: No rash. No lesions. No wounds. ENDOCRINE: No unexplained weight loss. No weight gain. HEMATOLOGIC/LYMPHATIC: No anemia. No purpura. No petechiae. No prolonged or excessive bleeding. No palpable lymph nodes. PHYSICAL EXAMINATION: VITAL SIGNS: Temperature 98.9, pulse 64, respiratory rate 18, blood pressure 138/78 and pulse ox 96%. HEENT: Head normocephalic, atraumatic. Left scalp hematoma noted which is occupying the temporal area. Eyes: Extraocular muscles are intact. Pupils are equal, round and reactive to light and accommodation. Ears: No lesions. Nose appeared normal. Throat: No exudate or erythema. NECK: Supple. No JVD, no carotid bruit. No lymphadenopathy or thyromegaly. LUNGS:Decreased breath sounds. Clear to auscultation. Percussion note normal. Chest symmetrical. HEART: S1, S2, no S3. No murmurs. No cyanosis or clubbing. No ascites. Pulses: Dorsalis pedis and posterior tibial pulses +1 to +2 both sides. ABDOMEN: Soft. Nontender. Bowel sounds active. No CVA tenderness. No mass felt. Emaciated, BMI 20. EXTREMITIES: No edema. Full range of motion of all extremities, equal. Left hemiparesis. NEUROLOGIC: No focal deficit. Cranial nerves II through XII are grossly intact. No headache, no double vision or headache. SKIN: Not dry. Intact. Turgor - normal. LYMPHATIC: No palpable lymph nodes/no lymphedema. MUSCULOSKELETAL: Normal joints with no swelling. Muscle tone is normal. ASSESSMENT: 1. Head injury with scalp hematoma with negative CT scan 2. Hypertensive urgency the patient's blood has been fairly well controlled. The patient was given Losartan/ Hydrochlorothiazide 3. The patient's neurological status has been unchanged. PLAN: 1. Norvasc would be given at night 5mg TIME SPENT: More than 30 minutes. Plan and coordination of the patient's care discussed in the presence of nurse. JOSUE
--- NOTE | 2018-03-30 09:04 | DS ---
DATE OF SERVICE: 03/28/18 FINAL DIAGNOSIS: 1. Head injury, status post fall-acute 2. Hypertension urgency-controlled 3. UTI-Klebsiella Pneumoniae-resolving 4. Oropharyngeal Dysphagia-acute 5. History of status post cataract 2009 6. CVA 2006 7. Status post pace maker insertion 2005 8. Status post left hip replacement- date unknown 9. Hypothyroidism 10.Status post thyroidectomy- date unknown 11.Anxiety 12.Depression LAST VITALS: Temperature 97.8, pulse 60, respiratory rate 16, blood pressure 125/75, pulse ox 100. DISCHARGE INSTRUCTIONS: Discharge to [facility] 03/28/18. Continue home medications per nursing sheet. CBC and CMP in one week. Vital signs every shift times 3 days then monthly. Blood pressure twice a day. Follow facility MD and return to Dr. Miles' s office as able and as needed. The patient is full code. MEDICATIONS AT DISCHARGE: Tylenol 650mg PO Q 6 hours PRN Xanax 0.25mg PO three times a day PRN Norvasc 10mg PO bedtime Aspirin 81mg PO daily Bentyl 10mg PO twice a day Lomotil 1 tablet PO daily PRN Ferrous sulfate 324mg Po twice ad ay Hydrochlorothiazide 12.5mg Po daily Synthroid 50mcg PO QDAC Cozaar 100mg PO daily Nitrostat 0.4mg SL Q 5 minutes x 3 doses PRN Miralax 17 gram PO daily K-Dur 10meq PO daily Detrol LA 4mg PO daily Metformin 500mg PO daily Januvia 50mg PO daily ALLERGIES: Codeine Insulin aspart NEW PRESCRIPTIONS: Omnicef 300mg Take one tablet two times a day for 7 days Norvasc 10mg take one tablet at bedtime Clonidine 0.1mg take one tablet two times a day as needed for systolic blood pressure great than 150 K-Dur 10meq take one capsule daily DIET INSTRUCTIONS: Mechanical soft with [place] thickened fluids. Speech therapy consult. ACTIVITY: PT/OT to evaluate and treat. SMOKING: N/A DISEASE SPECIFIC EDUCATION: Hypertension Safety Medications Diet Rehab services HOSPITAL COURSE: This is an 83 year old white female who had been living by herself at home. She has a history of a stroke in 2006 which has left her with some left sided weakness. She experienced a fall at home and hit her head. She was brought to the emergency room. She had a superficial hematoma to her forehead. Extensive bruising from the left side of her forehead down to the left cheek all down her left arm and then on her left hip. X-ray were all found to be negative. Blood pressure was extremely elevated in ER at 220/140. U/A was also abnormal. She was admitted for hypertensive urgency and status post fall with head injury. She was initially placed on Norvasc 5mg at bedtime and her Cozaar was increased to 100mg daily. She was still experiencing some high blood pressure, systolics in the 160s and 170 so we increased her Norvasc 10mg at bedtime. Her blood pressure has been well controlled. Last blood pressure today was 125/75. Urine came back positive for Klebsiella. She was initially placed on 1gram Rocephin IV daily for the abnormal U/A. Sensitivity showed sensitivity to Rocephin. As she is going to be going to the shelter due to worsening generalized weakness. She has been gradually deteriorating over the past several months as she has been coming in the office. Her daughter lives in [place]. [facility] [place] [facility]. We will send her on Omnicef 300mg twice a day for the next 7 days to be finished at the shelter. She has also been changed to mechanical soft diet as she was having some difficulty swallowing. She has been afebrile, vital signs have all been normal and she has been alert and oriented again she is just very weak. She probably should have been living with someone or not at home by herself for some time now. We will also send her with Clonidine 0.1mg to take twice a day PRN for systolic greater than 150 if she does need it. She did experience some hypokalemia likely from hemodilution from IV fluids. She was given 40meq of Potassium. We will send her back on 10meq daily. She is scheduled to have a CBC and CMP in one week and under go PT and OT at [facility]. We do not attending [facility] so we will not be seeing her there. She is supposed to followup with us in two weeks as an outpatient if she is able otherwise we will pick her back up if she gets out the of the shelter. She will be under care of their shelter physician there. She is discharged in today in stable condition. TIME SPENT: More than 60 minutes. MTDD
--- NOTE | 2018-03-30 13:29 | PN ---
DATE OF SERVICE: 03/26/18 SUBJECTIVE: 83-year-old white female hospitalized with head injury. The patient had repeat CT scan done yesterday which is practically unchanged. She has left hemiparesis and also had bruising of the left shoulder and left hip which was x-rayed and didn't show any fracture. Hypertensive urgency is under controlled. She is more alert. The patient is seen and examined with the nurse practitioner. CONDITION: Stable. TIME SPENT: More than 30 minutes. Plan and coordination of the patient's care discussed in the presence of nurse. JOSUE
--- NOTE | 2018-03-30 13:32 | PN ---
DATE OF SERVICE: 03/28/18 SUBJECTIVE: The patient is seen and examined with the nurse practitioner. The patient's condition has improved. She is more alert. She has left hemiparesis which has disabled her. The patient's head injury status post fall seems to be flattened hematoma now. No evidence of any ANHYDROUS [employer] deficit other than what she has. Blood pressure is well controlled. UTI seems to be under control. The patient will be discharged home on antibiotics. Prognosis is poor. She is going to go to the group home. CONDITION: Stable. TIME SPENT: More than 30 minutes. Plan and coordination of the patient's care discussed in the presence of nurse. JOSUE
--- NOTE | 2018-03-30 13:34 | PN ---
CODING FOR BILLING 03/23/18 ADMISSION DAY LEVEL 5 03/24/18 INTERMEDIATE 03/25/18 INTERMEDIATE 03/26/18 INTERMEDIATE 03/27/18 BRIEF 03/28/18 DISCHARGE MTDD
--- NOTE | 2018-04-20 14:07 | PN ---
DATE OF SERVICE: 03/25/18 SUBJECTIVE: The patient is the same way, she is not able to communicate. She is trying to eat something, no problem with swallowing. No other new neurological deficit. The patient has some old stroke she had before. Nutritional status is poor. REVIEW OF SYSTEMS: CONSTITUTIONAL: No night sweats. No fatigue, malaise, lethargy. No fever or chills. HEENT: Eyes: No visual changes. No eye pain. No eye discharge. ENT: No runny nose. No epistaxis. No sinus pain. No sore throat. No odynophagia. No congestion. RESPIRATORY: No cough, no congestion. No hemoptysis. No shortness of breath. CARDIOVASCULAR: No angina symptoms. No CHF symptoms. No atypical chest pain for CAD. No palpitations. No PND. No orthopnea. GASTROINTESTINAL: No abdominal pain. No nausea or vomiting. No diarrhea or constipation. No hematemesis. No hematochezia. GENITOURINARY: No urgency. No frequency. No dysuria. No hematuria. No obstructive symptoms. No discharge. No pain. No significant abnormal bleeding. MUSCULOSKELETAL: No musculoskeletal pain; no joint swelling. NEUROLOGICAL: No headache. No neck pain. No syncope. No seizures. No dizziness. PSYCHIATRIC: Not anxious. No depression. No suicidal thoughts. No homicidal thoughts. SKIN: No rash. No lesions. No wounds. ENDOCRINE: No unexplained weight loss. No weight gain. HEMATOLOGIC/LYMPHATIC: No anemia. No purpura. No petechiae. No prolonged or excessive bleeding. No palpable lymph nodes. PHYSICAL EXAMINATION: HEENT: Head normocephalic, atraumatic. Eyes: Extraocular muscles are intact. Pupils are equal, round and reactive to light and accommodation. Ears: No lesions. Nose appeared normal. Throat: No exudate or erythema. NECK: Supple. No JVD, no carotid bruit. No lymphadenopathy or thyromegaly. LUNGS:Decreased breath sounds but clear to auscultation. Percussion note normal. Chest symmetrical. HEART: S1, S2, no S3. No murmurs. No cyanosis or clubbing. No ascites. Pulses: Dorsalis pedis and posterior tibial pulses +1 to +2 bilaterally. ABDOMEN: Soft. Nontender. Bowel sounds active. No CVA tenderness. No mass felt. EXTREMITIES: No edema. Full range of motion of all extremities, equal. NEUROLOGIC: No focal deficit. Cranial nerves II through XII are grossly intact. No headache, no double vision or headache. SKIN: Not dry. Intact. Turgor - normal. LYMPHATIC: No palpable lymph nodes/no lymphedema. MUSCULOSKELETAL: Normal joints with no swelling. Muscle tone is normal. ASSESSMENT: 1. Fall with Hematoma with no neurological deficit CONDITION: Stable PROGNOSIS: Poor TIME SPENT: More than 30 minutes. Plan and coordination of the patient's care discussed in the presence of nurse. JOSUE
== END 2018-03-28 12:57 | DRG 605 ==
LOC: ED 14:21 → MEDSURG A 17:30 → MEDSURG B 19:41
PROVIDERS: ADMIT Internal Medicine; ATTEND Internal Medicine
DX: S00.83XA Contusion of other part of head, initial encounter (principal); N39.0 Urinary tract infection, site not specified; S40.819A Abrasion of unspecified upper arm, initial encounter; I10 Essential (primary) hypertension; B96.1 Klebsiella pneumoniae [K. pneumoniae] as the cause of diseases classified elsewhere; R13.12 Dysphagia, oropharyngeal phase; F41.8 Other specified anxiety disorders; E03.9 Hypothyroidism, unspecified; W19.XXXA Unspecified fall, initial encounter; Z86.73 Personal history of transient ischemic attack (TIA), and cerebral infarction without residual deficits
CPT/HCPCS: 36415; 80053; 81001; 82550; 82962; 83605; 84145; 84484; 85025; 87040; 87070; 87086; 87186; 93005; 93010; 96372; 99223; 99232; 99239; 99285

== ENCOUNTER 2018-03-28 12:59 | Outpatient (CLI) | payer OTHER | END 2018-03-28 13:00 | disposition home or self-care (01) | LOC: AMBL 12:59 | PROVIDERS: ATTEND Internal Medicine | DX: R53.1 Weakness (principal); R29.6 Repeated falls; Z86.73 Personal history of transient ischemic attack (TIA), and cerebral infarction without residual deficits ==